=== PATIENT | female | born 1955 | race Caucasian/White ===

== ENCOUNTER → 2024-03-16 09:13 | Outpatient (CLI) | payer MEDICARE, OTHER, SELFPAY ==
[2024-03-16 10:24] LABS: Add Manual Diff / Slide Review NO; Basophils Absolute Auto 100 /uL (0-100); Basophils Percent Auto 1.3 % (0-2); Eosinophils Absolute Auto 400 /uL (0-450); Eosinophils Percent Auto 4.3 % (2-4); Hematocrit 33.1 % (36-46); Hemoglobin 10.8 g/dL (12.0-16.0); Lymphocytes Absolute Auto 1300 /uL (1100-4500); Lymphocytes Percent Auto 13.6 % (25-40); Mean Corpuscular HGB Conc 32.7 % (30-36); Mean Corpuscular Hemoglobin 28.3 PG (26-34); Mean Corpuscular Volume 86.5 fL (80-100); Monocytes Absolute Auto 1000 /uL (0-900); Monocytes Percent Auto 10.6 % (3-14); Neutrophils Absolute Auto 6800 /uL (1500-7000); Neutrophils Percent Auto 70.2 % (50-75); Platelet Count 293 X10^3/uL (150-400); Red Blood Cell Count 3.82 X10^6/uL (4.0-5.2); Red Cell Distribution Width 17.4 % (11.6-14.8); White Blood Cell Count 9.7 X10^3/uL (4.5-11.0)
[2024-03-16 10:53] LABS: Alanine Aminotransferase 22 IU/L (<35); Albumin 3.7 g/dL (3.5-5.0); Albumin Globulin Ratio 1.4 (1.0-2.8); Alkaline Phosphatase 96 U/L (38-126); Aspartate Aminotransferase 20 IU/L (14-36); BUN Creatinine Ratio 21.5 (6-22); Bilirubin Total 0.3 mg/dL (0.2-1.3); Blood Urea Nitrogen 26 mg/dL (7-17); Calcium 9.1 mg/dL (8.4-10.2); Carbon Dioxide 28 mmol/L (22-32); Chloride 105 mmol/L (98-107); Cholesterol 183 mg/dL (140-199); Estimated Glomerular Filt Rate 48 mL/min (>60); Globulin 2.6 g/dL (1.7-4.1); Glucose 105 mg/dL (80-110); HDL Cholesterol 43 mg/dL (40-60); HEMOLYSIS < 15 (0-50); LDL Cholesterol Calculated 104 mg/dL (<100); Potassium 4.7 mmol/L (3.4-5.1); Sodium 138 mmol/L (137-145); Total Protein 6.3 g/dL (6.3-8.2); Triglycerides 181 mg/dL (35-150)
[2024-03-16 12:10] LABS: Creatinine Urine Random 97.1 mg/dL
[2024-03-16 12:12] LABS: Microalbumi Creatinin Ratio Ur 10.2 ug/mg CR (<30)
[2024-03-16 12:56] LABS: Hep C Virus Ab w/Reflex Quant NEGATIVE s/c (NEGATIVE)
== END ==
LOC: LAB 09:15
PROVIDERS: PCP Family Medicine; Referring Provider Family Medicine; Visit Provider Family Medicine
DX: I73.9 Peripheral vascular disease, unspecified (principal); I65.29 Occlusion and stenosis of unspecified carotid artery; I1A.0 Resistant hypertension; G91.9 Hydrocephalus, unspecified; R26.81 Unsteadiness on feet
CPT/HCPCS: 36415; 80053; 80061; 82043; 82570; 83036; 85025; 86803

== ENCOUNTER → 2024-03-25 11:06 | Outpatient (CLI) | payer MEDICARE, OTHER, SELFPAY ==
--- NOTE | 2024-03-25 11:08 | DI.US.S_ITS ---
PROCEDURE: US CAROTID DOPPLER BI INDICATIONS: stenosis TECHNIQUE: Color and pulse Doppler interrogation was performed of both carotid systems, with image documentation and velocity measurements. COMPARISON: None. FINDINGS: Stenosis calculations are based on SRU (Society of Radiologists in Ultrasound) criteria. Right side: Status post right common endarterectomy. Brachial blood pressure: 210 mm Hg. Common carotid artery peak systolic velocity: 67 cm/sec. Internal carotid artery peak systolic velocity: 95 cm/sec. Internal carotid artery end diastolic velocity: 34 cm/sec. External carotid artery peak systolic velocity: 463 cm/sec. ICA/CCA peak systolic ratio: 1.4 . Ding scale imaging description: Moderate atherosclerotic plaque Percent internal carotid artery stenosis: Less than 50 percent stenosis. Vertebral artery: Flow direction is antegrade. Left side: Brachial blood pressure: 186 mm Hg. Common carotid artery peak systolic velocity: 74 cm/sec. Internal carotid artery peak systolic velocity: 309 cm/sec. Internal carotid artery end diastolic velocity: 61 cm/sec. External carotid artery peak systolic velocity: 252 cm/sec. ICA/CCA peak systolic ratio: 4.2 . Ding scale imaging description: Severe atherosclerotic plaque Percent internal carotid artery stenosis: 70 percent to near occlusion . Vertebral artery: Flow direction is antegrade. IMPRESSION: 1. Status post right common endarterectomy. Less than 50 percent stenosis in the internal carotid artery. 2. Left internal carotid artery demonstrates 70 percent to near occlusion. 3. Elevated external carotid artery velocities bilaterally, right greater than left. 4. Greater than 10 mm Hg difference in the bilateral upper extremity brachial pressures which is nonspecific and may be seen in the setting of a subclavian artery stenosis. Vertebral artery flow is antegrade bilaterally. 5. Elevated brachial pressures bilaterally measuring 210 mm Hg on the right. Dictated by: Elier Juarez M.D. on 03/26/2024 at 9:29 Approved by: Elier Juarez M.D. on 03/26/2024 at 9:34
== END ==
PROVIDERS: PCP Family Medicine; Referring Provider Family Medicine; Visit Provider Family Medicine
DX: I65.23 Occlusion and stenosis of bilateral carotid arteries (principal)
CPT/HCPCS: 93880

== ENCOUNTER → 2024-04-27 09:39 | Outpatient (CLI) | payer MEDICARE, OTHER, SELFPAY ==
[2024-04-27 11:47] LABS: BUN Creatinine Ratio 25.2 (6-22); Blood Urea Nitrogen 37 mg/dL (7-17); Calcium 9.3 mg/dL (8.4-10.2); Carbon Dioxide 29 mmol/L (22-32); Chloride 106 mmol/L (98-107); Estimated Glomerular Filt Rate 38 mL/min (>60); Glucose 105 mg/dL (80-110); HEMOLYSIS < 15 (0-50); Potassium 4.3 mmol/L (3.4-5.1); Sodium 140 mmol/L (137-145)
== END ==
PROVIDERS: PCP Family Medicine; Referring Provider Family Medicine; Visit Provider Family Medicine
DX: E11.22 Type 2 diabetes mellitus with diabetic chronic kidney disease (principal); N18.30 Chronic kidney disease, stage 3 unspecified
CPT/HCPCS: 36415; 80048

== ENCOUNTER → 2024-07-19 15:51 | Outpatient (CLI) | payer MEDICARE, OTHER, SELFPAY ==
[2024-07-19 17:13] LABS: Hematocrit 27.6 % (36-46); Hemoglobin 8.8 g/dL (12.0-16.0)
[2024-07-19 17:34] LABS: Creatinine Urine Random 111.88 mg/dL; Protein (Total) Urine Random 24 mg/dL (0-12); Protein Creatinine Ratio Urine 0.21 GRAM/24H
[2024-07-19 17:47] LABS: BUN Creatinine Ratio 23.5 (6-22); Blood Urea Nitrogen 28 mg/dL (7-17); Calcium 9.1 mg/dL (8.4-10.2); Carbon Dioxide 26 mmol/L (22-32); Chloride 105 mmol/L (98-107); Estimated Glomerular Filt Rate 49 mL/min (>60); Glucose 99 mg/dL (80-110); HEMOLYSIS < 15 (0-50); Potassium 3.9 mmol/L (3.4-5.1); Sodium 139 mmol/L (137-145)
[2024-07-19 18:27] LABS: Hemoglobin A1C% w Est Avg Glu 5.8 % (4.0-6.0)
== END ==
LOC: LAB 15:55
PROVIDERS: PCP Family Medicine; Referring Provider Student in an Organized Health Care Education/Training Program; Visit Provider Student in an Organized Health Care Education/Training Program
DX: E11.29 Type 2 diabetes mellitus with other diabetic kidney complication (principal); N05.9 Unspecified nephritic syndrome with unspecified morphologic changes; D70.9 Neutropenia, unspecified; D63.1 Anemia in chronic kidney disease; R80.9 Proteinuria, unspecified
CPT/HCPCS: 36415; 80048; 82570; 83036; 84156; 85014; 85018

== ENCOUNTER → 2024-08-18 15:39 | Outpatient (CLI) | payer MEDICARE, OTHER, SELFPAY ==
[2024-08-18 17:25] LABS: Add Manual Diff / Slide Review NO; Basophils Absolute Auto 200 /uL (0-100); Basophils Percent Auto 1.7 % (0-2); Eosinophils Absolute Auto 400 /uL (0-450); Eosinophils Percent Auto 4.4 % (2-4); Hematocrit 23.9 % (36-46); Hemoglobin 7.2 g/dL (12.0-16.0); Lymphocytes Absolute Auto 1600 /uL (1100-4500); Lymphocytes Percent Auto 17.9 % (25-40); Mean Corpuscular Hemoglobin 25.5 PG (26-34); Monocytes Absolute Auto 900 /uL (0-900); Monocytes Percent Auto 9.4 % (3-14); Neutrophils Absolute Auto 6100 /uL (1500-7000); Neutrophils Percent Auto 66.6 % (50-75); Platelet Count 269 X10^3/uL (150-400); Red Blood Cell Count 2.81 X10^6/uL (4.0-5.2); Red Cell Distribution Width 17.9 % (11.6-14.8); White Blood Cell Count 9.2 X10^3/uL (4.5-11.0)
[2024-08-18 18:08] LABS: BUN Creatinine Ratio 25.9 (6-22); Blood Urea Nitrogen 35 mg/dL (7-17); Calcium 8.6 mg/dL (8.4-10.2); Carbon Dioxide 27 mmol/L (22-32); Chloride 104 mmol/L (98-107); Estimated Glomerular Filt Rate 42 mL/min (>60); Glucose 173 mg/dL (80-110); HEMOLYSIS < 15 (0-50); Potassium 4.6 mmol/L (3.4-5.1); Sodium 137 mmol/L (137-145)
== END ==
PROVIDERS: PCP Family Medicine; Referring Provider Family Medicine; Visit Provider Family Medicine
DX: E11.22 Type 2 diabetes mellitus with diabetic chronic kidney disease (principal); D63.8 Anemia in other chronic diseases classified elsewhere; N18.30 Chronic kidney disease, stage 3 unspecified; E11.29 Type 2 diabetes mellitus with other diabetic kidney complication
CPT/HCPCS: 36415; 80048; 85025

== ENCOUNTER 2024-08-19 16:24 | Emergency (ER) | payer MEDICARE, OTHER, SELFPAY ==
[2024-08-19] VITALS (16 sets, daily range): BP systolic 169–226; BP diastolic 75–87; PULSE 82–113; RESP 11–25; TEMP 36.8; O2SAT 95–98; BMI 34.9
--- NOTE | 2024-08-19 16:41 | EKG_ITS ---
[id number] [place] [address] Test Date: 2024-08-19 Pat Name: Edith Jarvis Department: [facility] Room: Gender: Female [employer] Home [employer]: CAILIN TAMMI : 1955 Requested By: Order Number: [id number] Reading MD: Richi Rai Measurements Intervals [place] Rate: 85 P: 53 NM: 148 QRS: 15 QRSD: 90 T: 100 QT: 388 QTc: 461 Interpretive Statements Normal sinus rhythm Nonspecific ST and T wave abnormality Electronically Signed On 08-20-2024 8:44:45 PDT by Richi Rai
--- NOTE | 2024-08-19 16:41 | DI.RAD.S_ITS ---
PROCEDURE: XR CHEST 1V INDICATIONS: abnormal labs TECHNIQUE: One view of the chest was acquired. COMPARISON: None. FINDINGS: Surgical changes and devices: None. Lungs and pleura: Lungs are clear. No pleural effusions or pneumothorax. Mediastinum: Mediastinal contours appear normal. Heart size is normal. Bones and chest wall: No suspicious bony lesions. Overlying soft tissues appear unremarkable. IMPRESSION: No acute cardiopulmonary abnormality is seen. Dictated by: Jeffery Macias M.D. on 08/19/2024 at 17:28 Approved by: Jeffery Macias M.D. on 08/19/2024 at 17:28
[2024-08-19 17:29] LABS: Add Manual Diff / Slide Review NO; Basophils Absolute Auto 200 /uL (0-100); Basophils Percent Auto 1.5 % (0-2); Eosinophils Absolute Auto 400 /uL (0-450); Eosinophils Percent Auto 3.7 % (2-4); Hematocrit 25.4 % (36-46); Hemoglobin 7.9 g/dL (12.0-16.0); Lymphocytes Absolute Auto 1600 /uL (1100-4500); Lymphocytes Percent Auto 15.6 % (25-40); Mean Corpuscular HGB Conc 30.9 % (30-36); Mean Corpuscular Hemoglobin 26.1 PG (26-34); Mean Corpuscular Volume 84.5 fL (80-100); Monocytes Absolute Auto 1100 /uL (0-900); Monocytes Percent Auto 10.8 % (3-14); Neutrophils Absolute Auto 7200 /uL (1500-7000); Neutrophils Percent Auto 68.4 % (50-75); Platelet Count 296 X10^3/uL (150-400); Red Blood Cell Count 3.01 X10^6/uL (4.0-5.2); Red Cell Distribution Width 18.3 % (11.6-14.8); White Blood Cell Count 10.4 X10^3/uL (4.5-11.0)
[2024-08-19 17:35] LABS: Prothrombin Time 11.6 SECONDS (9.4-12.5)
[2024-08-19 17:43] LABS: Alanine Aminotransferase 16 IU/L (<35); Albumin Globulin Ratio 1.3 (1.0-2.8); Alkaline Phosphatase 123 U/L (38-126); Aspartate Aminotransferase 22 IU/L (14-36); BUN Creatinine Ratio 21.7 (6-22); Bilirubin Total 0.4 mg/dL (0.2-1.3); Blood Urea Nitrogen 30 mg/dL (7-17); Calcium 9.1 mg/dL (8.4-10.2); Carbon Dioxide 29 mmol/L (22-32); Chloride 102 mmol/L (98-107); Estimated Glomerular Filt Rate 41 mL/min (>60); Glucose 166 mg/dL (80-110); HEMOLYSIS < 15 (0-50); Potassium 4.4 mmol/L (3.4-5.1); Sodium 139 mmol/L (137-145)
--- NOTE | 2024-08-19 21:56 | ED_ITS ---
HPI - Recheck/Abnormal Lab/Rx General Chief Complaint: Recheck/Abnormal Lab/Rx Stated Complaint: sent by MD for abnormal labs Time Seen by Provider: 08/19/24 20:30 Source: patient Mode of arrival: Wheelchair History of Present Illness HPI narrative: 68-year-old woman with a history of diabetes, carotid artery stenosis, peripheral vascular disease, hypertension, hydrocephalus was seen by her primary care physician yesterday with complaints of dizziness. Lab work was done and showed a hemoglobin of 7.2 which was a decrease from 8.8 a month previously. Patient was contacted and instructed come to the emergency department for further evaluation. Repeat H&H in the emergency department today shows a hemoglobin of 7.9. Patient has had a number of medication changes including Ozempic starting 3 weeks ago, recently added amlodipine and Jardiance, she took a dose of Lasix last night continues with clonidine and lisinopril. She occasionally uses albuterol. I suspect that the Lasix last night helped with hemo concentration which is why her hemoglobin went up. She does note increased lower extremity edema, as well as orthopnea and exertional dyspnea. Related Data Previous Rx's Medication Instructions Recorded triamcinolone acetonide 0.5 % 1 applic topical TID #15 grams 03/09/24 topical ointment albuterol sulfate 90 mcg/actuation 1 - 2 inh inhalation Q4-6H PRN 03/16/24 aerosol inhaler shortness of breath or wheezing #25.5 grams rosuvastatin 40 mg tablet (Crestor) 40 mg PO DAILY #90 tabs 03/16/[address] permit #1 ea 03/17/24 semaglutide 0.25 mg or 0.5 mg (2 0.25 mg (0.368 mL) SUBCUT QWEEK #9 05/26/24 mg/3 mL) subcutaneous pen injector mL (Ozempic) clonidine HCl 0.1 mg tablet 0.1 mg PO BEDTIME #90 tabs 06/04/24 amlodipine 2.5 mg tablet (Norvasc) 2.5 mg PO DAILY blood pressure #90 07/21/24 tabs lisinopril 40 mg tablet 40 mg PO DAILY blood pressure #90 07/21/24 tabs Allergies Allergy/AdvReac Type Severity Reaction Status Date / Time codeine AdvReac Intermediate sick Verified 08/18/24 14:53 Review of Systems Review of Systems Narrative: Pertinent positive and negative findings as per HPI Patient History Medical History Major depressive disorder, single episode, mild Macular degeneration Asthma (~2014) Headache Vertigo Hearing loss Cataracts, bilateral Colon polyps (~2017) Kidney atrophy Anemia, chronic disease 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, without long-term current use of insulin Former smoker Hyperlipidemia Unsteady gait when walking Peripheral vascular disease (~2017) Hydrocephalus Carotid artery stenosis Resistant hypertension Surgical History Anesthesia History of brain shunt (~1999) History of tubal ligation (~1979) Family History Father Cancer Hyperlipidemia Hypertension Stroke Mother History of heart disease Hyperlipidemia Hypertension Brother History of hip replacement Hyperlipidemia Brother History of heart attack Social History Smoking Status: Former smoker Smoking Status: Former smoker Substance Use Type: does not use Exam Initial Vital Signs Initial Vital Signs: Vital Signs Temperature 98.3 F 08/19/24 16:30 Pulse Rate 102 H 08/19/24 16:30 Respiratory Rate 20 08/19/24 16:30 Blood Pressure 183/76 H 08/19/24 16:30 Pulse Oximetry 96 08/19/24 16:30 Oxygen Delivery Method Room Air 08/19/24 16:30 General: Fatigued appearing but no acute distress able to speak in full sentences HEENT: Moist mucous membranes, normal sclera with reactive pupils, Neck: No JVD, Respiratory: Lungs with bibasilar crackles and expiratory wheezes full and symmetrical movement Cardiac: Regular rate and rhythm no murmurs no bruits Abdomen: Soft, nontender, good bowel tones, no flank pain Skin: Warm and dry, no rashes Neurologic: Grossly neurologically intact with 2+ edema Psych: Cooperative, appropriate insight and affect Course Orders Ordered: ED Orders 08/19/24 16:41 Chest [XR chest 1V] Stat EKG-12 Lead Stat 08/19/24 16:55 Complete Blood Count AUTO DIFF Stat Comprehensive Metabolic Panel Stat Prothrombin Time INR Stat Type and Screen Stat Vital Signs Vital signs: Vital Signs - 8 hr 08/19/24 16:30 08/19/24 19:11 08/19/24 19:11 Temperature 98.3 F Pulse Rate 102 H 90 Respiratory Rate 20 15 Blood Pressure 183/76 H 169/76 H Pulse Oximetry 96 97 Oxygen Delivery Method Room Air 08/19/24 19:30 08/19/24 19:43 08/19/24 19:43 Temperature Pulse Rate 97 H Respiratory Rate 24 Blood Pressure 185/81 H 205/81 H Pulse Oximetry 97 Oxygen Delivery Method 08/19/24 20:00 08/19/24 20:01 08/19/24 20:01 Temperature Pulse Rate 83 82 Respiratory Rate Blood Pressure 219/84 H Pulse Oximetry 98 98 Oxygen Delivery Method 08/19/24 20:30 Temperature Pulse Rate 88 Respiratory Rate 11 L Blood Pressure Pulse Oximetry 98 Oxygen Delivery Method MDM - Recheck/Abnormal Lab/Rx Lab Data 08/19/24 16:55 08/19/24 16:55 Labs: Lab Results 08/19/24 Range/Units 16:55 WBC 10.4 (4.5-11.0) X10^3/uL RBC 3.01 L (4.0-5.2) X10^6/uL Hgb 7.9 L (12.0-16.0) g/dL Hct 25.4 L (36-46) % MCV 84.5 (80-100) fL MCH 26.1 (26-34) PG MCHC 30.9 (30-36) % RDW 18.3 H (11.6-14.8) % Plt Count 296 (150-400) X10^3/uL Neut % (Auto) 68.4 (50-75) % Lymph % (Auto) 15.6 L (25-40) % [place] % (Auto) 10.8 (3-14) % Eos % (Auto) 3.7 (2-4) % Baso % (Auto) 1.5 (0-2) % Neut # (Auto) 7200 H (3923-6394) /uL Lymph # (Auto) 1600 (5269-3864) /uL [place] # (Auto) 1100 H (0-900) /uL Eos # (Auto) 400 (0-450) /uL Baso # (Auto) 200 H (0-100) /uL PT 11.6 (9.4-12.5) SECONDS INR 1.0 (0.9-1.3) Sodium 139 (137-145) mmol/L Potassium 4.4 (3.4-5.1) mmol/L Chloride 102 (98-107) mmol/L Carbon Dioxide 29 (22-32) mmol/L BUN 30 H (7-17) mg/dL Creatinine 1.38 H (0.52-1.04) mg/dL Estimated GFR 41 L (>60) mL/min BUN/Creatinine Ratio 21.7 (6-22) Glucose 166 H (80-110) mg/dL Calcium 9.1 (8.4-10.2) mg/dL Total Bilirubin 0.4 (0.2-1.3) mg/dL AST 22 (14-36) IU/L ALT 16 (<35) IU/L Alkaline Phosphatase 123 (38-126) U/L Total Protein 7.0 (6.3-8.2) g/dL Albumin 4.0 (3.5-5.0) g/dL Globulin 3.0 (1.7-4.1) g/dL Albumin/Globulin Ratio 1.3 (1.0-2.8) Blood Type O Negative Antibody Screen Negative MDM Narrative Medical decision making narrative: CC: General malaise, exertional dyspnea, orthopnea Complicating co-morbidities: Diabetes, hypertension, chronic kidney disease Data collected from: patient, daughter Social determinants of health that may influence the patients condition: Lives in [facility], reluctant to take many medications Medical records reviewed: Primary care note from yesterday is reviewed Differential considered: Acute bleeding, significant anemia, worsening kidney failure, congestive heart failure, acute coronary syndrome, viral syndrome Exam documented above, pertinent findings include: No acute distress but appears to be fatigued. She has mild bibasilar crackles and expiratory wheeze in lung garcia. She does not have JVD but she does have 2+ bilateral lower extremity edema. Lab Test results independently reviewed as above. Pertinent findings: CBC shows no evidence of infection, white count is appropriate. Hemoglobin has increased from 7.2-7.9 since yesterday(this is after a dose of Lasix yesterday afternoon) Chemistries are notable for her chronic kidney disease creatinine is at 1.3. Electrolytes are appropriate otherwise Independently reviewed EKG: EKG shows sinus rhythm at a rate of 85 no acute ischemic changes Imaging studies independently reviewed: Chest x-ray shows no acute cardiopulmonary abnormalities. No evidence of severe congestive heart failure Consultations: Treatments: She is given her usual 0.2 mg of nighttime clonidine as well as 80 mg of IV Lasix Re-evaluations: Discussion: 68-year-old woman with multiple complaints. Multiple recent medications that may be causing her problems. With shared decision-making we opted to hold some of her medications, increase others and re-evaluate more slowly as medications are added to see which are causing side effects recommendations are: 1. Continue with the Ozempic for at least another month to see if she continues to adjust to side effects from this 2. Continue with lisinopril and clonidine as she has been taking them 3. Continue current dose of Lasix. When you do follow up with Dr. Thomas, please take this prescription bottle in with you. I am unable to confirm the dose of Lasix you currently have 4. Hold on the Jardiance 5. Hold on the amlodipine 6. Do check blood pressures in the middle of the day and write these numbers down to review with Dr. Thomas At this time there was no indication for transfusion. She was given a DuoNeb to help with the expiratory wheeze. We will ask her to follow up with her primary care physician in 1-2 weeks. We will likely need to repeat blood work. Given her clinical signs of congestive heart failure echocardiogram and outpatient nuclear medicine cardiac evaluation may be appropriate to be included in continued workup. Discharge Plan Departure Patient Disposition: Home Clinical Impression: Congestive heart failure Qualifiers: Heart failure type: unspecified Heart failure chronicity: unspecified Qualified Code(s): I50.9 - Heart failure, unspecified Hypertension Qualifiers: Hypertension type: primary hypertension Qualified Code(s): I10 - Essential (primary) hypertension Fatigue Qualifiers: Fatigue type: unspecified Qualified Code(s): R53.83 - Other fatigue Activity Restrictions/Additional Instructions: Thank you for coming in today I did not find any evidence of acute bleeding, you do not need a blood transfusion today. With shared decision-making we opted to hold some of your medications, increase others and re-evaluate more slowly as medications are added to see which are causing side effects. recommendations are: 1. Continue with the Ozempic for at least another month to see if she continues to adjust to side effects from this 2. Continue with lisinopril and clonidine as she has been taking them 3. Continue current dose of Lasix. When you do follow up with Dr. Thomas, please take this prescription bottle in with you. I am unable to confirm the dose of Lasix you currently have 4. Hold on the Jardiance 5. Hold on the amlodipine 6. Do check blood pressures in the middle of the day and write these numbers down to review with Dr. Thomas Please make sure you schedule a follow up appointment with Dr. Thomas in the next 1-2 weeks. If you find that you are getting worse or develop any new symptoms, please feel free to return to the emergency department for further evaluation. Prescriptions: No Action triamcinolone acetonide 0.5 % ointment 1 applic topical TID Qty: 15 0RF (DME) Disabled parking permit See Rx Instructions .ROUTE .MEDSUPPLY Qty: 1 0RF Rx Instructions: I find this patient to be medically disabled and qualified for disabled parking as indicated, and signed, on the accompanying disabled parking application for individuals. Ozempic 0.25 mg or 0.5 mg (2 mg/3 mL) pen injector 0.25 mg SUBCUT QWEEK Qty: 9 3RF Rx Instructions: Pt eligible per [facility] pharmacy. Please fax prior auth paperwork to [phone]. We have tried to submit by phone but it never connects to a treasury representative. clonidine HCl 0.1 mg tablet 0.1 mg PO BEDTIME Qty: 90 3RF lisinopril 40 mg tablet 40 mg PO DAILY Qty: 90 3RF amlodipine [Norvasc] 2.5 mg tablet 2.5 mg PO DAILY Qty: 90 3RF Hold Instructions: Home Medication placed on hold at Doctor's office rosuvastatin [Crestor] 40 mg tablet 40 mg PO DAILY Qty: 90 3RF albuterol sulfate 90 mcg/actuation HFA aerosol inhaler 1 - 2 inh inhalation Q4-6H PRN (Reason: shortness of breath or wheezing) Qty: 25.5 3RF Referrals: Yeni Casper DO [Primary Care Provider] - Stand Alone Forms: Patient Portal/API
[2024-08-19] MEDS: ALBUTEROL/IPRATROPIUM 3 ML AMPUL INH (22:34)
[2024-08-19] MEDS: cloNIDine 0.1 MG TABLET 0.2 MG PO (22:40)
[2024-08-19] MEDS: FUROSEMIDE 40 MG/4 ML VIAL 80 MG IV (22:41)
== END 2024-08-19 23:30 | disposition home or self-care (01) ==
PROVIDERS: Emergency Medicine; Emergency Provider Emergency Medicine; PCP Family Medicine
DX: I50.9 Heart failure, unspecified (principal); I10 Essential (primary) hypertension; R53.83 Other fatigue; R79.89 Other specified abnormal findings of blood chemistry; Z79.899 Other long term (current) drug therapy; Z79.01 Long term (current) use of anticoagulants
CPT/HCPCS: 36415; 71045; 80053; 85025; 85610; 86850; 86900; 86901; 93005; 94640; 96374; 99284; J1940

== ENCOUNTER 2024-08-24 10:36 | Emergency (ER) | payer MEDICARE, OTHER, SELFPAY ==
[2024-08-24] VITALS (11 sets, daily range): BP systolic 126–182; BP diastolic 57–77; PULSE 86–101; RESP 14–36; TEMP 36.3; O2SAT 95–97; BMI 34.9
--- NOTE | 2024-08-24 10:37 | DI.RAD.S_ITS ---
PROCEDURE: XR CHEST 1V INDICATIONS: chest pain TECHNIQUE: One view of the chest was acquired. COMPARISON: [facility], CR, XR CHEST 1V, 08/19/2024, 16:41. FINDINGS: Surgical changes and devices: None. Lungs and pleura: Lungs are clear. No pleural effusions or pneumothorax. Mediastinum: Mediastinal contours appear normal. Heart size is normal. Bones and chest wall: No suspicious bony lesions. Overlying soft tissues appear unremarkable. IMPRESSION: No acute cardiopulmonary pathology. Dictated by: Virgilio Rubin M.D. on 08/24/2024 at 10:57 Approved by: Virgilio Rubin M.D. on 08/24/2024 at 10:58
--- NOTE | 2024-08-24 10:40 | ED_ITS ---
HPI - General Adult General Chief complaint: Chest Pain Stated complaint: chest pain Time Seen by Provider: 08/24/24 10:40 History of Present Illness HPI narrative: Patient with a history of diabetes, peripheral vascular disease, coronary artery stenosis hypertension hydrocephalus had multiple medical changes recently in seen in the emergency department on August 19 with concerns of a hemoglobin of 2 as a cause for her symptoms. Repeat H&H was 7.9 and she was felt to be in a moderate amount of heart failure. She was diuresed and instructed to follow up with her primary care physician today. Additional changes without visit included holding Jardiance, amlodipe. She has been on amlodipine for approximately 6 months and was going to do her shot this week. She saw her primary care doctor this morning and was complaining of chest pain and he sent her back to the emergency department for further evaluation. Patient has been given 20 mg of torsemide by her condenser operator but had not been taking it. After ER visit on August 19 she actually has been and notes that she has been voiding frequently and her lower extremity edema has gone way down. Blood pressure is much better controlled this morning as she did take her blood pressure medications however she is complaining of dizzy and simply not feeling well. Related Data Home Medications Medication Instructions Recorded Confirmed torsemide 20 mg tablet 20 mg PO DAILY 08/24/24 08/24/24 Previous Rx's Medication Instructions Recorded albuterol sulfate 90 mcg/actuation 1 - 2 inh inhalation Q4-6H PRN 03/16/24 aerosol inhaler shortness of breath or wheezing #25.5 grams rosuvastatin 40 mg tablet (Crestor) 40 mg PO DAILY #90 tabs 03/16/24 [address]abled [address] permit #1 ea 03/17/24 semaglutide 0.25 mg or 0.5 mg (2 0.25 mg (0.368 mL) SUBCUT QWEEK #9 05/26/24 mg/3 mL) subcutaneous pen injector mL (Ozempic) clonidine HCl 0.1 mg tablet 0.1 mg PO BEDTIME #90 tabs 06/04/24 amlodipine 2.5 mg tablet (Norvasc) 2.5 mg PO DAILY blood pressure #90 07/21/24 tabs lisinopril 40 mg tablet 40 mg PO DAILY blood pressure #90 07/21/24 tabs Allergies Allergy/AdvReac Type Severity Reaction Status Date / Time codeine AdvReac Intermediate sick Verified 08/24/24 10:01 Review of Systems Review of Systems Narrative: Pertinent positive and negative findings as per HPI Patient History Medical History Major depressive disorder, single episode, mild Macular degeneration Asthma (~2014) Headache Vertigo Hearing loss Cataracts, bilateral Colon polyps (~2017) Kidney atrophy Anemia, chronic disease 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, without long-term current use of insulin Former smoker Hyperlipidemia Unsteady gait when walking Peripheral vascular disease (~2017) Hydrocephalus Carotid artery stenosis Resistant hypertension Surgical History Anesthesia History of brain shunt (~1999) History of tubal ligation (~1979) Family History Father Cancer Hyperlipidemia Hypertension Stroke Mother History of heart disease Hyperlipidemia Hypertension Brother History of hip replacement Hyperlipidemia Brother History of heart attack Social History Smoking Status: Former smoker Smoking Status: Former smoker Substance Use Type: does not use Exam Initial Vital Signs Initial Vital Signs: Vital Signs Temperature 97.4 F L 08/24/24 10:43 Pulse Rate 101 H 08/24/24 10:43 Respiratory Rate 18 08/24/24 10:43 Blood Pressure 154/67 H 08/24/24 10:43 Pulse Oximetry 97 08/24/24 10:43 Oxygen Delivery Method Room Air 08/24/24 10:43 General: Fatigued appearing but in no acute distress. Able to give a complete and coherent history. HEENT: Moist mucous membranes, normal sclera with reactive pupils, Neck: No JVD, supple Respiratory: Lungs are clear to auscultation, no wheezing no rales no rhonchi. Full and symmetrical air movement Cardiac: Regular rate and rhythm no murmurs no bruits Abdomen: Soft, nontender, good bowel tones, no flank pain Skin: Warm and dry, no rashes Neurologic: Grossly neurologically intact with no obvious asymmetries or abnormalities Extremities: No trauma, lower extremities are showing 1+ edema which is a significant improvement from comparison to the . Psych: Cooperative, appropriate insight and affect Course Orders Ordered: ED Orders 08/24/24 10:15 Complete Blood Count AUTO DIFF Stat Comprehensive Metabolic Panel Stat Lipase Stat Magnesium Stat NT-proBNP (BNP-Adult 18+) Stat PTT Partial Thromboplastin Breezy Stat Prothrombin Time INR Stat Troponin & CK Cardiac Panel Stat 08/24/24 10:37 XR chest 1V Stat EKG-12 Lead Stat 08/24/24 12:25 Trop I [Troponin I] Stat Discontinued Medications Aspirin (Aspirin 81 Mg Chew Tab) 324 mg PO NOW ONE Stop: 08/24/24 10:38 Last Admin: 08/24/24 11:47 Dose: Not Given Documented By: SB Sodium Chloride (Normal Saline 0.9%) 1,000 mls @ 1,000 mls/hr IV BOLUS ONE Stop: 08/24/24 13:25 Last Admin: 08/24/24 12:36 Dose: 1,000 mls/hr Documented By: AMV Vital Signs Vital signs: Vital Signs - 8 hr 08/24/24 10:43 08/24/24 10:44 08/24/24 11:01 Temperature 97.4 F L Pulse Rate 101 H 101 H 96 H Respiratory Rate 18 36 H 22 Blood Pressure 154/67 H 182/77 H Pulse Oximetry 97 97 97 Oxygen Delivery Method Room Air 08/24/24 11:31 08/24/24 12:01 08/24/24 12:30 Temperature Pulse Rate 93 H 95 H 88 Respiratory Rate 19 24 18 Blood Pressure 146/63 H 126/57 L Pulse Oximetry 95 97 95 Oxygen Delivery Method Room Air 08/24/24 12:31 08/24/24 12:31 08/24/24 13:00 Temperature Pulse Rate 90 Respiratory Rate 24 Blood Pressure 157/70 H 171/74 H Pulse Oximetry 95 Oxygen Delivery Method 08/24/24 13:00 Temperature Pulse Rate 87 Respiratory Rate 14 Blood Pressure Pulse Oximetry 96 Oxygen Delivery Method Medical Decision Making Lab Data 08/24/24 10:15 08/24/24 10:15 Labs: Lab Results 08/24/24 08/24/24 Range/Units 10:15 12:25 WBC 10.3 (4.5-11.0) X10^3/uL RBC 3.20 L (4.0-5.2) X10^6/uL Hgb 8.2 L (12.0-16.0) g/dL Hct 26.8 L (36-46) % MCV 83.8 (80-100) fL MCH 25.7 L (26-34) PG MCHC 30.7 (30-36) % RDW 19.5 H (11.6-14.8) % Plt Count 305 (150-400) X10^3/uL Neut % (Auto) Not Reportable Lymph % (Auto) Not Reportable [place] % (Auto) Not Reportable Eos % (Auto) Not Reportable Baso % (Auto) Not Reportable Lymph # (Auto) Not Reportable [place] # (Auto) Not Reportable Baso # (Auto) Not Reportable Total Counted 100 Seg Neutrophils % 79.0 H (38-70) % Band Neutrophils % 2.0 L (3-7) % Lymphocytes % (Manual) 14.0 L (25-45) % Eosinophils % (Manual) 2.0 (2-4) % Basophils % (Manual) 3.0 H (0-1) % Neutrophils # (Manual) 8343 H (8086-5640) /uL RBC Morphology See below Hypochromasia 1+ H Anisocytosis 1+ H PT 12.2 (9.4-12.5) SECONDS INR 1.1 (0.9-1.3) APTT 34 (25.1-36.5) SECONDS Sodium 139 (137-145) mmol/L Potassium 4.3 (3.4-5.1) mmol/L Chloride 103 (98-107) mmol/L Carbon Dioxide 28 (22-32) mmol/L BUN 52 H (7-17) mg/dL Creatinine 1.57 H (0.52-1.04) mg/dL Estimated GFR 35 L (>60) mL/min BUN/Creatinine Ratio 33.1 H (6-22) Glucose 235 H (80-110) mg/dL Calcium 9.0 (8.4-10.2) mg/dL Magnesium 1.8 (1.6-2.3) mg/dL Total Bilirubin 0.4 (0.2-1.3) mg/dL AST 39 H (14-36) IU/L ALT 18 (<35) IU/L Alkaline Phosphatase 93 (38-126) U/L Total Creatine Kinase 111 (30-135) U/L Troponin I 0.030 0.029 (0.01-0.034) ng/mL NT-Pro-B Natriuret Pep 180 H (<125) pg/mL Total Protein 6.9 (6.3-8.2) g/dL Albumin 4.0 (3.5-5.0) g/dL Globulin 2.9 (1.7-4.1) g/dL Albumin/Globulin Ratio 1.4 (1.0-2.8) Lipase 220 (23-300) U/L MDM Narrative Medical decision making narrative: CC: Chest pain Complicating co-morbidities: Diabetes, hypertension, general malaise over the last number of weeks Data collected from: patient Social determinants of health that may influence the patients condition: Medical records reviewed: Reviewed recent ER note with addition of Lasix, held amlodipine and held Jardiance. Discussed with her primary care physician in real-time this morning Differential considered: Cardiac pain, esophageal spasm, nausea, reflux Exam documented above, pertinent findings include: Lab Test results independently reviewed as above. Pertinent findings: CBC is unremarkable. Hemoglobin continues to increase Chemistries show continued climb in her creatinine, in July creatinine had been 1.2 today is 1.6 ProBNP is 180, minimally elevated Initial troponin is undetectable Lipase is unremarkable Independently reviewed EKG: Sinus rhythm, PVCs noted. No acute ischemic changes Imaging studies independently reviewed: Chest x-ray shows no acute changes Treatments: 250 cc of fluid Discussion: Patient states she is feeling significantly better, chest pain has completely resolved, her dizziness has resolved. Labs are reassuring with no evidence of acute coronary disease but a slight bump in her creatinine with normal electrolytes. Was planning on a full L of fluid however after 250 cc with resolution of symptoms we will hold this point. We will ask her to decrease her torsemide to 10 mg rather than 20 mg. I think we have maximized her volume overload. We will have her continue with current medications and continue holding the Jardiance in the amlodipine. She will keep checking blood pressures. Encouraged her to schedule a another follow up with her primary care doctor and to keep the scheduled follow up with her condenser operator. Questions are answered she is safe for discharge Discharge Plan Departure Patient Disposition: Home Clinical Impression: Acute dehydration, Dizziness Chest pain Qualifiers: Chest pain type: unspecified Qualified Code(s): R07.9 - Chest pain, unspecified Activity Restrictions/Additional Instructions: Thank you for coming in today I am glad that you are feeling better. I gave you do 150 cc of fluid and that made a significant difference. I think that we have given you a bit too much of your diuretic and that is what is making you dizzy. I am going to suggest that tonight you begin cutting your torsemide from 20 mg to 10 mg. I did not find any evidence of infection or significant heart attack or heart attack like syndrome Please continue with all of the other medications that you are currently taking including holding the Jardiance in the amlodipine. Make sure that you are checking your blood pressures at least once a day to document that for your physicians You will need to follow up with your primary care doctor in 1-2 weeks. Please keep your nephrology follow up as already scheduled If you find that you are getting worse or develop any new symptoms, please feel free to return to the emergency department for further evaluation. Prescriptions: No Action (DME) Disabled parking permit See Rx Instructions .ROUTE .MEDSUPPLY Qty: 1 0RF Rx Instructions: I find this patient to be medically disabled and qualified for disabled parking as indicated, and signed, on the accompanying disabled parking application for individuals. Ozempic 0.25 mg or 0.5 mg (2 mg/3 mL) pen injector 0.25 mg SUBCUT QWEEK Qty: 9 3RF Rx Instructions: Pt eligible per [facility] pharmacy. Please fax prior auth paperwork to [phone]. We have tried to submit by phone but it never connects to a manufacturers service representative. clonidine HCl 0.1 mg tablet 0.1 mg PO BEDTIME Qty: 90 3RF lisinopril 40 mg tablet 40 mg PO DAILY Qty: 90 3RF amlodipine [Norvasc] 2.5 mg tablet 2.5 mg PO DAILY Qty: 90 3RF Hold Instructions: Home Medication placed on hold at Doctor's office rosuvastatin [Crestor] 40 mg tablet 40 mg PO DAILY Qty: 90 3RF albuterol sulfate 90 mcg/actuation HFA aerosol inhaler 1 - 2 inh inhalation Q4-6H PRN (Reason: shortness of breath or wheezing) Qty: 25.5 3RF torsemide 20 mg tablet 20 mg PO DAILY Referrals: Yeni Casper DO [Primary Care Provider] - Stand Alone Forms: Patient Portal/API
--- NOTE | 2024-08-24 10:53 | EKG_ITS ---
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
[2024-08-24 11:00] LABS: INR 1.1 (0.9-1.3); Prothrombin Time 12.2 SECONDS (9.4-12.5)
[2024-08-24 11:02] LABS: PTT Partial Thromboplastin Tim 34 SECONDS (25.1-36.5)
[2024-08-24 11:04] LABS: Add Manual Diff / Slide Review YES; Hematocrit 26.8 % (36-46); Hemoglobin 8.2 g/dL (12.0-16.0); Mean Corpuscular HGB Conc 30.7 % (30-36); Mean Corpuscular Hemoglobin 25.7 PG (26-34); Mean Corpuscular Volume 83.8 fL (80-100); Platelet Count 305 X10^3/uL (150-400); Red Cell Distribution Width 19.5 % (11.6-14.8); White Blood Cell Count 10.3 X10^3/uL (4.5-11.0)
[2024-08-24 11:05] LABS: Alanine Aminotransferase 18 IU/L (<35); Albumin Globulin Ratio 1.4 (1.0-2.8); Alkaline Phosphatase 93 U/L (38-126); Aspartate Aminotransferase 39 IU/L (14-36); BUN Creatinine Ratio 33.1 (6-22); Bilirubin Total 0.4 mg/dL (0.2-1.3); Blood Urea Nitrogen 52 mg/dL (7-17); Carbon Dioxide 28 mmol/L (22-32); Chloride 103 mmol/L (98-107); Creatine Kinase 111 U/L (30-135); Estimated Glomerular Filt Rate 35 mL/min (>60); Globulin 2.9 g/dL (1.7-4.1); Glucose 235 mg/dL (80-110); HEMOLYSIS < 15 (0-50); Lipase 220 U/L (23-300); Magnesium 1.8 mg/dL (1.6-2.3); Potassium 4.3 mmol/L (3.4-5.1); Sodium 139 mmol/L (137-145); Total Protein 6.9 g/dL (6.3-8.2)
[2024-08-24 11:17] LABS: NT-proBNP (BNP-Adult 18+) 180 pg/mL (<125)
[2024-08-24 11:29] LABS: Neutrophils Absolute Manual 8343 /uL (3000-5900); Total Cells Counted 100
[2024-08-24 11:30] LABS: Anisocytosis 1+; Hypochromasia 1+
[2024-08-24] MEDS: SODIUM CHLORIDE 0.9% 1,000 ML 1000 ML IV (12:36)
[2024-08-24 12:57] LABS: Troponin I 0.029 ng/mL (0.01-0.034)
--- NOTE | 2024-08-24 13:53 | PC.NURSE ---
Per Provider Yamileth RYDER to stop IV fluids. NS admin as per JAN.
== END 2024-08-24 14:32 | disposition home or self-care (01) ==
PROVIDERS: Emergency Provider Emergency Medicine; PCP Family Medicine
DX: R07.9 Chest pain, unspecified (principal); E86.0 Dehydration; R42 Dizziness and giddiness; I10 Essential (primary) hypertension; I25.10 Atherosclerotic heart disease of native coronary artery without angina pectoris
CPT/HCPCS: 71045; 80053; 82550; 83690; 83735; 83880; 84484; 85007; 85025; 85610; 85730; 93005; 93010; 96360; 99284

== ENCOUNTER → 2024-09-17 10:13 | Outpatient (CLI) | payer MEDICARE, OTHER, SELFPAY ==
[2024-09-17 11:23] LABS: Hematocrit 25.7 % (36-46); Hemoglobin 7.7 g/dL (12.0-16.0)
[2024-09-17 11:51] LABS: Blood Urea Nitrogen 32 mg/dL (7-17); Calcium 9.2 mg/dL (8.4-10.2); Carbon Dioxide 29 mmol/L (22-32); Chloride 103 mmol/L (98-107); Estimated Glomerular Filt Rate 41 mL/min (>60); Glucose 112 mg/dL (80-110); HEMOLYSIS < 15 (0-50); Phosphorous 3.7 mg/dL (2.8-4.1); Potassium 4.5 mmol/L (3.4-5.1); Sodium 138 mmol/L (137-145)
[2024-09-17 11:55] LABS: HEMOLYSIS < 15 (0-50); Iron 191 ug/dL (37-170)
[2024-09-17 12:08] LABS: Percent Iron Saturation 43 % (15-50); Total Iron Binding Capacity 448 ug/dL (265-497); Transferrin 334 mg/dL (206-381)
[2024-09-17 12:13] LABS: Creatinine Urine Random 62.43 mg/dL; Protein (Total) Urine Random 6 mg/dL (0-12); Protein Creatinine Ratio Urine 0.09 GRAM/24H
[2024-09-17 12:25] LABS: Ferritin 8 ng/mL (11-264)
[2024-09-18 10:12] LABS: Parathyroid Hormone Int 69 pg/mL (15-65)
== END ==
PROVIDERS: PCP Family Medicine; Referring Provider Student in an Organized Health Care Education/Training Program; Visit Provider Student in an Organized Health Care Education/Training Program
DX: N05.9 Unspecified nephritic syndrome with unspecified morphologic changes (principal); D50.0 Iron deficiency anemia secondary to blood loss (chronic); D70.9 Neutropenia, unspecified; D63.1 Anemia in chronic kidney disease; N25.81 Secondary hyperparathyroidism of renal origin; R80.9 Proteinuria, unspecified; E83.30 Disorder of phosphorus metabolism, unspecified
CPT/HCPCS: 36415; 80048; 82570; 82728; 83540; 83550; 83970; 84100; 84156; 85014; 85018

== ENCOUNTER → 2024-10-01 11:05 | Outpatient (CLI) | payer MEDICARE, OTHER, SELFPAY ==
--- NOTE | 2024-10-01 11:08 | DI.CT.S_ITS ---
PROCEDURE: CT HEAD/BRAIN WO CON INDICATIONS: (Idiopathic) normal pressure hydrocephalus TECHNIQUE: Noncontrast 4.5 mm thick angled axial sections acquired from the foramen magnum to the vertex, with coronal and sagittal reformats. For radiation dose reduction, the following was used: automated exposure control, adjustment of mA and/or kV according to patient size. COMPARISON: None. FINDINGS: Image quality: Diagnostic. CSF spaces: Basal cisterns are patent. No extra-axial fluid collections. Hyperdense extra-axial material along the right cerebral convexity. The ventricles are mildly dilated. Left parietal ventriculostomy catheter in place with tip terminating near the foramen of [place]. Brain: No intracranial bleeds or masses. There is cerebral volume loss for age, with resultant ventricular and sulcal prominence. Hypoattenuation is seen around the ventricles, favored to represent chronic microvascular ischemic changes. There is intracranial internal carotid artery atherosclerosis. Skull and face: Calvarium and visualized facial bones appear intact, without suspicious lesions. Sinuses: Visualized sinuses and mastoids are clear. IMPRESSION: Ventricles are dilated with a left parietal approach ventriculostomy catheter in place. Hypoattenuation is seen around the ventricles which is favored to represent chronic microvascular ischemic changes. However, no prior imaging is available for comparison and transependymal flow of CSF from acute hydrocephalus is not definitively excluded. Recommend clinical correlation and comparison to prior imaging if available. High-density material along the right cerebral convexity of uncertain etiology, correlate with prior postsurgical changes and prior imaging. Dictated by: Robert Young M.D. on 10/01/2024 at 12:37 Approved by: Robert Young M.D. on 10/01/2024 at 12:41
--- NOTE | 2024-10-01 11:10 | DI.RAD.S_ITS ---
PROCEDURE: XR CHEST 1V INDICATIONS: (Idiopathic) normal pressure hydrocephalus TECHNIQUE: One view of the chest was acquired. COMPARISON: [facility], CR, XR CHEST 1V, 08/24/2024, 10:40. [facility], CR, XR CHEST 1V, 08/19/2024, 16:41. FINDINGS: Surgical changes and devices: Ventriculoperitoneal catheter is seen projecting over the chest. The portion of the catheter of the mid to lower chest is obscured by superimposed osseous structures. Visualized portions of the catheter tubing are intact. Lungs and pleura: Lungs are clear. No pleural effusions or pneumothorax. Mediastinum: Mediastinal contours appear normal. Heart size is normal. Bones and chest wall: No suspicious bony lesions. Overlying soft tissues appear unremarkable. IMPRESSION: 1. No acute cardiopulmonary abnormality is seen. 2. Ventricular peritoneal shunt catheter is intact where visualized. Approved by: Giovani Tejeda M.D. on 10/01/2024 at 13:03
--- NOTE | 2024-10-01 11:10 | DI.RAD.S_ITS ---
PROCEDURE: XR SKULL<4V INDICATIONS: (Idiopathic) normal pressure hydrocephalus TECHNIQUE: Single view of the skull acquired, frontal projection. COMPARISON: [facility], CT, CT HEAD/BRAIN WO CON, 10/01/2024, 12:04. FINDINGS: Bones: No fractures. No suspicious bony lesions. Visualized sinuses appear clear. Soft tissues: No soft tissue calcifications. No suspicious soft tissue densities. Ventriculostomy catheter also seen by CT scanning same day traverses along the left neck area extending inferiorly through the supraclavicular fossa towards the midline and below the imaging margin. IMPRESSION: No evidence of ventriculostomy catheter kinking, or fracture. Dictated by: Gus Marie M.D. on 10/01/2024 at 13:57 Approved by: Gus Marie M.D. on 10/01/2024 at 13:59
== END ==
PROVIDERS: PCP Family Medicine; Referring Provider Neurological Surgery; Visit Provider Neurological Surgery
DX: G91.2 (Idiopathic) normal pressure hydrocephalus (principal); Z98.2 Presence of cerebrospinal fluid drainage device
CPT/HCPCS: 70250; 70450; 71045

== ENCOUNTER 2024-10-05 07:11 | Inpatient (IN) | payer MEDICARE, OTHER, SELFPAY ==
[2024-10-05] VITALS (26 sets, daily range): BP systolic 135–184; BP diastolic 46–81; PULSE 78–108; RESP 16–24; TEMP 36.3–36.9; O2SAT 88–100; BMI 36.5
--- NOTE | 2024-10-05 07:19 | EKG_ITS ---
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
--- NOTE | 2024-10-05 07:19 | ED.CHESTPAIN ---
HPI - Chest Pain General Chief Complaint: Chest Pain Stated Complaint: Chest Pain Time Seen by Provider: 10/05/24 07:19 Source: patient, RN notes reviewed and old records reviewed Mode of arrival: EMS Limitations: no limitations History of Present Illness HPI narrative: 69-year-old female with history of diabetes, peripheral vascular disease, coronary artery stenosis on Plavix, hypertension, hydrocephalus with prior shunt who presents with complaint of substernal chest pain without any radiation been present since last night at about 8:00 a.m. in the evening. Patient states it started while she was watching TV never resolved worsened overnight and became intense enough that she called for EMS this morning. She states no radiation is worse with exertion, states she also feels short of breath with it. Denies any fevers or chills, no cold, cough or congestion. No nausea or vomiting. No diaphoresis. States she is chronic swelling in his lower extremities but not significantly worse today. States no issues with bowel movement or urination that are new. She notes a little bit positional little bit better when she is upright. She notes that she has been anemic is scheduled for iron infusions she is unsure why, she is on Plavix daily but no aspirin, is on lisinopril 40 mg for hypertension amlodipine 2.5 mg, clonidine 0.1 mg which she describes as PRN, rosuvastatin and states that she was receiving Ozempic recently. She was takes torsemide 10 mg twice daily. States prior surgeries include [employer] shunt, stents in her lower extremities endarterectomy on the right and scheduled for enteritis oophorectomy on the left. Has not had any prior cardiac stents or heart catheterization. Describes allergy to codeine. No tobacco, alcohol or recreational drugs. Primary care physician is Dr. Casper. Has seen Cardiology once before. Patient received aspirin 325 mg nitro sublingual x2 and morphine EN route with EMS with improvement of her chest pain from an 8 to a 2. Related Data Home Medications Medication Instructions Recorded Confirmed torsemide 20 mg tablet 10 mg PO DAILY 09/03/24 09/29/24 Previous Rx's Medication Instructions Recorded albuterol sulfate 90 mcg/actuation 1 - 2 inh inhalation Q4-6H PRN 03/16/24 aerosol inhaler shortness of breath or wheezing #25.5 grams rosuvastatin 40 mg tablet (Crestor) 40 mg PO DAILY #90 tabs 03/16/24 [address]abled [address] permit #1 ea 03/17/24 clonidine HCl 0.1 mg tablet 0.1 mg PO BEDTIME #90 tabs 06/04/24 amlodipine 2.5 mg tablet (Norvasc) 2.5 mg PO DAILY blood pressure #90 07/21/24 tabs lisinopril 40 mg tablet 40 mg PO DAILY blood pressure #90 07/21/24 tabs semaglutide 0.25 mg or 0.5 mg (2 0.25 mg (0.368 mL) SUBCUT QWEEK #9 09/08/24 mg/3 mL) subcutaneous pen injector mL (Ozempic) alprazolam 0.5 mg tablet (Xanax) 0.5 mg PO DAILY PRN eye injections 09/29/24 #14 tabs Allergies Allergy/AdvReac Type Severity Reaction Status Date / Time codeine AdvReac Intermediate sick Verified 09/29/24 10:36 Review of Systems Review of Systems ROS Unobtainable: All systems reviewed & are unremarkable except as noted in HPI and below Patient History Medical History Major depressive disorder, single episode, mild Macular degeneration Asthma (~2014) Headache Vertigo Hearing loss Cataracts, bilateral Colon polyps (~2017) Kidney atrophy Anemia, chronic disease 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, without long-term current use of insulin Former smoker Hyperlipidemia Unsteady gait when walking Peripheral vascular disease (~2017) Hydrocephalus Carotid artery stenosis Resistant hypertension Surgical History Anesthesia History of brain shunt (~1999) History of tubal ligation (~1979) Family History Father Cancer Hyperlipidemia Hypertension Stroke Mother History of heart disease Hyperlipidemia Hypertension Brother History of hip replacement Hyperlipidemia Brother History of heart attack Social History Smoking Status: Former smoker Smoking Status: Former smoker Substance Use Type: does not use Exam Narrative Exam Narrative: GENERAL: Alert and oriented x three, female in mild distress. No diaphoresis. HEENT: Head normocephalic, atraumatic, EOMI, pupils reactive, face symmetric, moist mucous membranes NECK: Supple, full range of motion CARDIOVASCULAR: Regular rate and rhythm without murmurs, rubs or gallops. No JVD. Nonpitting edema bilateral lower extremities. RESPIRATORY: Breath sounds equal bilaterally, no wheezes rales or rhonchi. No tachypnea or accessory muscle use. Speaks in full sentences. ABDOMEN: Soft, nontender. Normoactive bowel sounds all 4 quadrants. No guarding or rebound, rigidity, no mass : No CVA tenderness EXTREMITIES: Normal range of motion.. Neurovascularly intact NEUROLOGICAL: Cranial nerves II through XII grossly intact. Moving all extremities SKIN: Warm, dry, no petechiae, no rashes or lesions. Initial Vital Signs Initial Vital Signs: Vital Signs Pulse Rate 104 H 10/05/24 07:13 Pulse Oximetry 88 L 10/05/24 07:13 Course Orders Ordered: ED Orders 10/05/24 06:55 Complete Blood Count AUTO DIFF Stat Comprehensive Metabolic Panel Stat D Dimer Stat Lactate (Lactic Acid) Stat Lipase Stat Magnesium Stat NT-proBNP (BNP-Adult 18+) Stat PTT Partial Thromboplastin Breezy Stat Procalcitonin Stat Prothrombin Time INR Stat Troponin & CK Cardiac Panel Stat 10/05/24 07:25 XR chest 1V Stat EKG-12 Lead Stat 10/05/24 08:11 Respiratory Panel (Film Array) Stat Urine Culture Stat Urine Microscopic Stat 10/05/24 08:15 Blood Culture Stat 10/05/24 08:30 CT angio chest PE protocol Stat 10/05/24 09:53 Trop I [Troponin I] Stat Discontinued Medications Aspirin (Aspirin 81 Mg Chew Tab) 324 mg PO NOW ONE Stop: 10/05/24 07:26 Last Admin: 10/05/24 07:26 Dose: Not Given Documented By: LYNN Furosemide (Furosemide 40 Mg/4 Ml Vial) 40 mg IV NOW ONE Stop: 10/05/24 08:31 Last Admin: 10/05/24 10:07 Dose: 40 mg Documented By: LYNN Ceftriaxone Sodium 1,000 mg/ (Sodium Chloride) 100 mls @ 200 mls/hr IV NOW ONE Stop: 10/05/24 08:05 Last Infusion: 10/05/24 09:29 Dose: Infused Documented By: Admin: 10/05/24 08:31 Dose: 200 mls/hr Documented By: LYNN Nitroglycerin (Nitroglycerin Oint 1 Inch/Gm Oint...G.) 1 inch TOP NOW ONE Stop: 10/05/24 07:30 Last Admin: 10/05/24 08:30 Dose: 1 inch Documented By: [facility] Vital Signs Vital signs: Vital Signs - 8 hr 10/05/24 07:13 10/05/24 07:14 10/05/24 07:14 Temperature Pulse Rate 104 H 104 H Respiratory Rate Blood Pressure 184/81 H Pulse Oximetry 88 L 90 L Oxygen Delivery Method Oxygen Flow Rate 10/05/24 07:17 10/05/24 07:30 10/05/24 07:31 Temperature 98.4 F Pulse Rate 104 H 95 H 92 H Respiratory Rate 18 19 21 Blood Pressure 184/81 H Pulse Oximetry 90 L 89 L 92 Oxygen Delivery Method Room Air Nasal Cannula Oxygen Flow Rate 2 10/05/24 07:31 10/05/24 08:01 10/05/24 08:18 Temperature Pulse Rate 92 H 85 Respiratory Rate 16 Blood Pressure 176/70 H Pulse Oximetry 99 100 Oxygen Delivery Method Oxygen Flow Rate 10/05/24 08:18 10/05/24 08:30 10/05/24 08:30 Temperature Pulse Rate 84 Respiratory Rate Blood Pressure 183/72 H 159/70 H 159/70 H Pulse Oximetry Oxygen Delivery Method Oxygen Flow Rate 10/05/24 08:30 10/05/24 08:52 10/05/24 08:52 Temperature Pulse Rate 85 85 Respiratory Rate 22 18 Blood Pressure 172/70 H Pulse Oximetry 100 99 Oxygen Delivery Method Nasal Cannula Oxygen Flow Rate 2 10/05/24 08:53 10/05/24 08:53 10/05/24 09:00 Temperature Pulse Rate 89 86 Respiratory Rate 22 17 Blood Pressure 162/72 H Pulse Oximetry 99 98 Oxygen Delivery Method Oxygen Flow Rate 10/05/24 09:00 10/05/24 09:30 10/05/24 09:30 Temperature Pulse Rate 89 Respiratory Rate 20 Blood Pressure 155/68 H 162/67 H Pulse Oximetry 99 Oxygen Delivery Method Oxygen Flow Rate 10/05/24 10:00 10/05/24 10:00 10/05/24 10:13 Temperature Pulse Rate 82 Respiratory Rate 21 Blood Pressure 157/67 H 176/74 H Pulse Oximetry 99 Oxygen Delivery Method Oxygen Flow Rate 10/05/24 10:13 Temperature Pulse Rate 87 Respiratory Rate Blood Pressure Pulse Oximetry 98 Oxygen Delivery Method Oxygen Flow Rate MDM - Chest Pain Lab Data 10/05/24 06:55 10/05/24 06:55 Labs: Lab Results 10/05/24 10/05/24 10/05/24 Range/Units 06:55 08:11 09:53 WBC 17.4 H (4.5-11.0) X10^3/uL RBC 3.44 L (4.0-5.2) X10^6/uL Hgb 8.0 L (12.0-16.0) g/dL Hct 27.2 L (36-46) % MCV 79.0 L (80-100) fL MCH 23.2 L (26-34) PG MCHC 29.3 L (30-36) % RDW 19.2 H (11.6-14.8) % Plt Count 288 (150-400) X10^3/uL Neut % (Auto) 77.4 H (50-75) % Lymph % (Auto) 8.2 L (25-40) % [place] % (Auto) 11.6 (3-14) % Eos % (Auto) 1.5 L (2-4) % Baso % (Auto) 1.3 (0-2) % Neut # (Auto) 99466 H (5369-3113) /uL Lymph # (Auto) 1400 (0096-3840) /uL [place] # (Auto) 2000 H (0-900) /uL Eos # (Auto) 300 (0-450) /uL Baso # (Auto) 200 H (0-100) /uL PT 11.5 (9.4-12.5) SECONDS INR 1.0 (0.9-1.3) APTT 25 L (25.1-36.5) SECONDS D-Dimer 1254 H (<500) ng/ml Sodium 137 (137-145) mmol/L Potassium 4.0 (3.4-5.1) mmol/L Chloride 102 (98-107) mmol/L Carbon Dioxide 30 (22-32) mmol/L BUN 18 H (7-17) mg/dL Creatinine 1.10 H (0.52-1.04) mg/dL Estimated GFR 54 L (>60) mL/min BUN/Creatinine Ratio 16.4 (6-22) Glucose 152 H (80-110) mg/dL Lactate 1.2 (0.7-2.1) mmol/L Calcium 9.2 (8.4-10.2) mg/dL Magnesium 1.8 (1.6-2.3) mg/dL Total Bilirubin 0.4 (0.2-1.3) mg/dL AST 19 (14-36) IU/L ALT 16 (<35) IU/L Alkaline Phosphatase 104 (38-126) U/L Total Creatine Kinase 103 (30-135) U/L Troponin I 0.018 0.012 (0.01-0.034) ng/mL NT-Pro-B Natriuret Pep 333 H (<125) pg/mL Total Protein 6.9 (6.3-8.2) g/dL Albumin 4.0 (3.5-5.0) g/dL Globulin 2.9 (1.7-4.1) g/dL Albumin/Globulin Ratio 1.4 (1.0-2.8) Lipase 102 (23-300) U/L Procalcitonin 0.115 (<0.5) ng/mL Urine RBC None seen (0-5/HPF) Urine WBC 5-10/hpf H (0-5/HPF) Ur Squamous Epith Cells 0-1 /hpf (0-5/HPF) Urine Bacteria None seen (None) Ur Culture Indicated? Specimen cultured Vol Urine Centrifuged 10ml (spun) Chlamy pneumoniae PCR Not detected (Not Detect) Adenovirus (PCR) Not detected (Not Detect) B. pertussis DNA (PCR) Not detected (Not Detect) B.parapertussis DNA PCR Not detected (Not Detecte) Coronavirus OC43 (PCR) Not detected (Not Detect) Coronavirus HKU1 (PCR) Not detected (Not Detect) Coronavirus 229E (PCR) Not detected (Not Detect) SARS-CoV-2 (PCR) Not detected (Not Detecte) Coronavirus NL63 (PCR) Not detected (Not Detect) Human Metapneumovir PCR Not detected (Not Detect) Influenza Type A (PCR) Not detected (Not Detect) Influenza Type B (PCR) Not detected (Not Detect) M. pneumoniae (PCR) Not detected (Not Detect) Parainfluenza 1 (PCR) Not detected (Not Detect) Parainfluenza 2 (PCR) Not detected (Not Detect) Parainfluenza 3 (PCR) Not detected (Not Detect) Parainfluenza 4 (PCR) Not detected (Not Detect) RSV (PCR) Not detected (Not Detect) Entero/Rhino (PCR) Not detected (Not Detect) Urine Dip Bedside Urine Glucose Negative Bedside Urine Bilirubin - Negative Bedside Urine Ketone - Negative Urine Specific [place] 1.015 Bedside Urine Occult Blood - Negative Bedside Urine pH 6.5 Bedside Urine Protein +/- 15 Bedside Urine Urobilinogen - Negative Bedside Urine Nitrite - Negative Bedside Urine Leukocytes +/- 15 Esterase Imaging Data Chest x-ray: Radiologist's Impression: 40 UserRM ? Marisol Guallpa, DO [facility] Routine Call Back Main ED ?6? My List ?4? Fast Track ?0? Waiting ?0? Surge ED ?0? R02? Jiménez? ? Mike? 62 M? With Doctor? 40m? 2-Emergent? Shortness of Breath/Dyspnea? history of Afib/blood clots, weakness? 10/05/24 08:08? REG ER? Draft? Marisol Guallpa Order BP 115/83 Pulse 141 Resp 20 Temp 97.7 F O2 Sat 100% (RA) EKG-12 Stacy... ?Complete B... ?Chem Lipase Sta... Troponin &... ?Magnesium ... ?Prothrombi... ?PTT Partia... Imaging MAR NT-proBNP ... Cardiac mo... NPO Diet EKG-12 Stacy... R04? Matheus? ? Edith? 69 F? With Doctor? 1h 15m? 2-Emergent? Chest Pain? Chest Pain? 10/05/24 07:19? REG ER? Draft? Marisol Flores H ekg done Needs lactate, procal and cultures, resp panel urine at bedside? Order BP 176/70 Pulse 92 Resp 21 Temp O2 Sat 92% (2L/NC) ?NT-proBNP ... Lipase Sta... Magnesium ... Prothrombi... Troponin &... ?Complete B... ?Chem ?PTT Partia... Imaging ?D Dimer St... Lactate (L... MAR NPO Diet EKG-12 Stacy... Cardiac mo... Respirator... Procalcito... Microbiolo... R06? Ramirez? ? Ashley? 73 F? With Doctor? 22m? VC: 1? No Chief Complaint? upper R arm fracture, wound bleeding? 10/05/24 08:29? REG ER? No Document? Marisol Guallpa Order R07? Josse Rossjacques? ? Dona? 1y 3m F? With Doctor? 49m? 3-Urgent? Ill Child? fever, cold symptoms t-2? Sepsis? ?? 10/05/24 07:43? REG ER? Draft? Marisol Guallpa Order BP Pulse 200 Resp 34 Temp 101.7 F O2 Sat 97% (RA) MAR Respirator... R08? Pruitt? ? Bob? 56 M? Pending Admission? 1h 36m? 3-Urgent? Dizziness? feels like he is having a stroke? Sepsis? ?? 10/05/24 07:04? REG ER? Draft? Marisol Guallpa ciwa 8 @ 0819 has headache [ ] urine repeat trop/ekg @ 0925 Order BP 175/77 Pulse 104 Resp 24 Temp 97.7 F O2 Sat 94% (RA) Ethanol (E... ?Troponin &... Imaging ?Complete B... ?Chem EKG-12 Stacy... MAR TSH w/ Ref... Consult to... Urine Drug... POC/MANAN Troponin I... Creatinine... Sodium Uri... Fleming? ? Surya? 14 M? Pending Xfer to Other Facility? 14h 34m? 2-Emergent? Psychiatric Symptoms? Self Harm, Lacerations on Arms? 10/04/24 18:16? REG ER? Signed? Mike Mistry gone 0824 Preferred name: KRYSTAL Alfaro vital Accepted @ [facility] ETA 0815 Report called to [phone] Order BP 123/82 Pulse 90 Resp 17 Temp 98 F O2 Sat 99% (RA) ?Chem Ethanol (E... Lipase Sta... Urine Drug... Acetaminop... ?Complete B... Salicylate... ?Urinalysis... Covid-19 +... MAR Consult to... General (R... Imaging - XR chest 1V Edith Jarvis??69??F??1955 ? Allergy/Adv: codeine Close Imaging ACTIVITY DATE EXAM STATUS AUTHOR 10/05/24 07:25 Chest X-Ray Signed Virgilio Rubin Imaging Reports Close Chest X-Ray (Signed) Virgilio Rubin - 10/05/24 Launch?Image [address] [address] XRay Report Signed Patient: Edith Jarvis MR#: [id number] : 1955 Acct:[id number] Age/Sex: 69 / F Date of Service: 10/05/24 Loc: ED Accession Number: [id number] Procedure: XR chest 1V Ordering Provider: Marisol Guallpa D.O. PROCEDURE: XR CHEST 1V INDICATIONS: chest pain TECHNIQUE: One view of the chest was acquired. COMPARISON: [facility], , XR CHEST 1V, 10/01/2024, 11:34. FINDINGS: Surgical changes and devices: Left internal jugular central venous catheter tip is in SVC. Lungs and pleura: Mild pulmonary vascular congestion is seen. No definite focal infiltrate. No pleural effusions or pneumothorax. Mediastinum: Mediastinal contours appear normal. Heart size is mildly enlarged. Bones and chest wall: No suspicious bony lesions. Overlying soft tissues appear unremarkable. IMPRESSION: Mild cardiomegaly and pulmonary vascular congestion. No definite focal infiltrate. No pleural effusion or pneumothorax. Dictated by: Virgilio Rubin M.D. on 10/05/2024 at 8:15 Approved by: Virgilio Rubin M.D. on 10/05/2024 at 8:15 ECG Data Attestation: I personally reviewed and interpreted this ECG as follows: Prior ECG tracings: available for review Interpretation: Sinus rhythm premature atrial complex, rate of 100 WI 138 QRS of 90 QTC of 464. No acute ST elevation or depression noted on EKG. EKG shows prior from 08/24/2024 which appears similar. MDM Narrative Medical decision making narrative: 69-year-old female with known vascular disease with prior stents in her legs and endarterectomy who presents with complaint of substernal chest pain that started at 8:00 a.m. last night has been persistent without resolution and shortness of breath. Patient notes that she has been anemic recently supposed to be scheduled for iron transfusions but unclear source. Patient's O2 sat did dip into the high 80s. Placed on 2 L and improved to 100%. EKG shows sinus rhythm no acute ST changes Chest x-ray mild cardiomegaly and pulmonary vascular congestion, no definite focal infiltrates no pleural effusion or pneumothorax. Labs white count of 17.4, hemoglobin of 8 patient's microcytic, predominance of neutrophils with platelets of 288. Coags are overall appropriate creatinine is 1.10, BUN 18 sodium 137 potassium of 4 chloride of 102 with a CO2 of 30, glucose of 152 Mag is 1.8, LFTs are negative troponin 0.018 with a BNP of 333. Patient has had most 12 hours of chest pain negative troponin. Lactate is 1.2 And procalcitonin is 0.115. Repeat troponin is 0.012 Blood cultures were obtained Respiratory panel is negative. D-dimer was added on has Herbert's chest x-ray was negative, patient's hypoxic with complaint of chest pain and shortness of breath minimally elevated BNP although she does have some edema bilateral lower extremities. Was positive even with age adjustment and CT chest angio was obtained which shows no acute pulmonary embolism, no acute abnormality noted throughout moderate coronary artery calcifications. Patient has been hypertensive. Patient did have nitro paste placed as she had nitro on morphine which was helpful. On re-evaluation she feels much improved. Patient's white count is quite elevated, she was little bit hypoxic, covered potential pneumonia with Rocephin while awaiting workup. Patient Lasix ordered is exam is somewhat consistent with CHF and had drop in O2 she was initially reluctant but after discussion was given. Spoke with Dr. Islas, hospitalist . Asked for repeat troponin. Reviewed treatment thus far. If negative plan for observation with tele. Discharge Plan Departure Patient Disposition: Admitted as Observation Clinical Impression: Chest pain, CHF (congestive heart failure) Admit Date/Time: 10/05/24 10:33 Admit Provider: Jhonny Islas
--- NOTE | 2024-10-05 07:25 | DI.RAD.S_ITS ---
PROCEDURE: XR CHEST 1V INDICATIONS: chest pain TECHNIQUE: One view of the chest was acquired. COMPARISON: [facility], CR, XR CHEST 1V, 10/01/2024, 11:34. FINDINGS: Surgical changes and devices: Left internal jugular central venous catheter tip is in SVC. Lungs and pleura: Mild pulmonary vascular congestion is seen. No definite focal infiltrate. No pleural effusions or pneumothorax. Mediastinum: Mediastinal contours appear normal. Heart size is mildly enlarged. Bones and chest wall: No suspicious bony lesions. Overlying soft tissues appear unremarkable. IMPRESSION: Mild cardiomegaly and pulmonary vascular congestion. No definite focal infiltrate. No pleural effusion or pneumothorax. Dictated by: Virgilio Rubin M.D. on 10/05/2024 at 8:15 Approved by: Virgilio Rubin M.D. on 10/05/2024 at 8:15
[2024-10-05 07:36] LABS: Add Manual Diff / Slide Review NO; Basophils Absolute Auto 200 /uL (0-100); Basophils Percent Auto 1.3 % (0-2); Eosinophils Absolute Auto 300 /uL (0-450); Eosinophils Percent Auto 1.5 % (2-4); Hematocrit 27.2 % (36-46); Lymphocytes Absolute Auto 1400 /uL (1100-4500); Lymphocytes Percent Auto 8.2 % (25-40); Mean Corpuscular HGB Conc 29.3 % (30-36); Mean Corpuscular Hemoglobin 23.2 PG (26-34); Monocytes Absolute Auto 2000 /uL (0-900); Monocytes Percent Auto 11.6 % (3-14); Neutrophils Absolute Auto 13400 /uL (1500-7000); Neutrophils Percent Auto 77.4 % (50-75); Platelet Count 288 X10^3/uL (150-400); Red Blood Cell Count 3.44 X10^6/uL (4.0-5.2); Red Cell Distribution Width 19.2 % (11.6-14.8); White Blood Cell Count 17.4 X10^3/uL (4.5-11.0)
[2024-10-05 07:40] LABS: Prothrombin Time 11.5 SECONDS (9.4-12.5)
[2024-10-05 07:43] LABS: PTT Partial Thromboplastin Tim 25 SECONDS (25.1-36.5)
[2024-10-05 07:44] LABS: Alanine Aminotransferase 16 IU/L (<35); Albumin Globulin Ratio 1.4 (1.0-2.8); Alkaline Phosphatase 104 U/L (38-126); Aspartate Aminotransferase 19 IU/L (14-36); BUN Creatinine Ratio 16.4 (6-22); Bilirubin Total 0.4 mg/dL (0.2-1.3); Blood Urea Nitrogen 18 mg/dL (7-17); Calcium 9.2 mg/dL (8.4-10.2); Carbon Dioxide 30 mmol/L (22-32); Chloride 102 mmol/L (98-107); Creatine Kinase 103 U/L (30-135); Estimated Glomerular Filt Rate 54 mL/min (>60); Globulin 2.9 g/dL (1.7-4.1); Glucose 152 mg/dL (80-110); HEMOLYSIS < 15 (0-50); Lipase 102 U/L (23-300); Magnesium 1.8 mg/dL (1.6-2.3); Sodium 137 mmol/L (137-145); Total Protein 6.9 g/dL (6.3-8.2)
[2024-10-05 07:56] LABS: NT-proBNP (BNP-Adult 18+) 333 pg/mL (<125); Troponin I 0.018 ng/mL (0.01-0.034)
[2024-10-05 08:18] LABS: D Dimer 1254 ng/ml (<500)
[2024-10-05 08:19] LABS: Lactate (Lactic Acid) 1.2 mmol/L (0.7-2.1)
[2024-10-05] MEDS: NITROGLYCERIN OINT 1 INCH/GM OINT...G. TOP (08:30)
--- NOTE | 2024-10-05 08:30 | DI.CT.S_ITS ---
PROCEDURE: CT ANGIO CHEST PE PROTOCOL INDICATIONS: cp, sob, hypoxia, elevated dimer TECHNIQUE: After the administration of intravenous contrast, 2 mm thick sections acquired from the pulmonary apices to the posterior costophrenic angles. 3-dimensional maximum intensity projection (MIP) coronal and sagittal reformats were then acquired through the thorax. For radiation dose reduction, the following was used: automated exposure control, adjustment of mA and/or kV according to patient size. COMPARISON: [facility], CR, XR CHEST 1V, 10/05/2024, 7:26. FINDINGS: Image quality: Diagnostic. Pulmonary arteries: Pulmonary arteries are normal in size, and demonstrate no intraluminal filling defects to suggest central pulmonary embolism. Lower Neck: No enlarged lymph nodes. Thyroid: No thyroid nodules which require sonographic follow up, per consensus guidelines. Axillae: No enlarged lymph nodes. Chest Wall: Unremarkable. Bones: Unremarkable. Lungs and Pleura: No pneumothorax or pleural effusions. No consolidation or suspicious nodules. a benign calcified granuloma is seen at the left lower lobe. Heart: Heart size is normal. No pericardial effusion. 2 vessel coronary artery calcifications. Thoracic Vessels: No aortic aneurysm. Mediastinum and Cele: No enlarged lymph nodes. Esophagus: No wall thickening. No hiatal hernia. Upper Abdomen: Reflux of contrast material is seen into the hepatic veins. Visualized upper abdomen solid organs and bowel loops appear normal. IMPRESSION: 1. No acute pulmonary embolus. No acute abnormality is seen in the chest. 2. Moderate coronary artery calcifications. Approved by: Giovani Tejeda M.D. on 10/05/2024 at 9:07
[2024-10-05] MEDS: cefTRIAXone 1,000 MG in SODIUM CHLORIDE 0.9% 100 ML 200 MG IV (08:31)
[2024-10-05 08:36] LABS: Procalcitonin 0.115 ng/mL (<0.5)
[2024-10-05 09:09] LABS: Bacteria Urine None Seen; Culture Indicated Urine Specimen Cultured; RBC Urine None Seen (0-5/HPF); Squamous Epithelial Cell Urine 0-1 /HPF (0-5/HPF); Urine Volume 10mL (spun); WBC Urine 5-10/HPF (0-5/HPF)
[2024-10-05 09:15] LABS: Adenovirus Not Detected (Not Detect); B. parapertussis Not Detected (Not Detecte); Bordetella pertussis Not Detected (Not Detect); Chlamydophila pneumoniae Not Detected (Not Detect); Coronavirus 229E Not Detected (Not Detect); Coronavirus HKU1 Not Detected (Not Detect); Coronavirus NL 63 Not Detected (Not Detect); Coronavirus OC43 Not Detected (Not Detect); Human Metapneumovirus Not Detected (Not Detect); Human Rhinovirus/Enterovirus Not Detected (Not Detect); Influenza A Not Detected (Not Detect); Influenza B Not Detected (Not Detect); Mycoplasma pneumoniae Not Detected (Not Detect); Parainfluenza Virus 1 Not Detected (Not Detect); Parainfluenza Virus 2 Not Detected (Not Detect); Parainfluenza Virus 3 Not Detected (Not Detect); Parainfluenza Virus 4 Not Detected (Not Detect); Respiratory Syncytial Virus Not Detected (Not Detect); SARS- CoV-2 Not Detected (Not Detecte)
[2024-10-05] MEDS: FUROSEMIDE 40 MG/4 ML VIAL IV (10:07)
[2024-10-05 10:27] LABS: Troponin I 0.012 ng/mL (0.01-0.034)
--- NOTE | 2024-10-05 12:05 | DI.ECHO.S_ITS ---
[place] +---------+ [facility] : : [address] : : [place] : : [id number] : : Phone: [phone] Echocardiogram Report + + :Name: CHIDI SEARS Study Date: 10/05/2024 Height: 68 in : :Hospital ReadingLocation: Weight: 240 lb : : Gender: Female BSA: 2.2 m2 : :: 1955 Age: 69 yrs BP: 165/69 mmHg: :Reason For Study: CHEST PAIN : :Ordering Physician: LIBRA, : :TANNER FRIED Performed By: Kourtney Dow : :Referring: TANNER SMYTH : + + Interpretation Summary 1) Mildly increased left ventricular thickness (concentric) with normal size, normal wall motion, and normal systolic function (EF 65-70%). 2) Dynamic LVOT gradient noted (peak gradient 65mmHg with valsalva). Heart rate 100-110bpm. 3) Normal right ventricular size and function. 4) No significant valvular abnormalities. 5) No prior Echo available for comparison. Procedure: A two-dimensional transthoracic echocardiogram with color flow and Doppler was performed. The study quality was technically adequate. There is no prior echocardiogram noted for this patient. The patient was in sinus tachycardia with heart rates between 103-110 bpm during the exam. Left Ventricle: The left ventricle is normal in size. There is mild concentric left ventricular hypertrophy. The ejection fraction is estimated to be 65-70%. Left ventricular systolic function appears normal without focal wall motion abnormalities. Right Ventricle: The right ventricle is normal in size and function. Atria: The left atrium is mildly dilated. Right atrial size is normal. There is no Doppler evidence for an interatrial shunt. Mitral Valve: There is moderate mitral annular calcification. The mitral valve leaflets are moderately calcified. There is moderate mitral stenosis. The mitral valve mean gradient is 6.6 mmHg. There is mild mitral regurgitation. Aortic Valve: The aortic valve is mildly calcified. The aortic valve is trileaflet. The peak aortic velocity is 2.2 m/sec. The aortic valve mean gradient is 12 mmHg. No aortic regurgitation is present. Tricuspid Valve: The tricuspid valve is normal in structure and function. There is a trace or physiologic amount of tricuspid regurgitation. Pulmonary artery pressures cannot be estimated because of the lack of a measurable TR jet velocity. Pulmonic Valve: The pulmonic valve leaflets are thin and pliable; valve motion is normal. There is mild pulmonic regurgitation. Great Vessels: The aortic root is normal size. The dimensions of the ascending aorta are normal. The IVC is of normal diameter and collapses greater than 50% with a sniff. This suggests a low right atrial pressure of 3 mm Hg. Pericardium/ Pleura There is no pericardial effusion. There is no pleural effusion. MMode/2D Measurements & Calculations LVIDd: 4.4 cm LVOT diam: 1.9 cm LVIDs: 3.0 cm Ao root diam: 2.9 cm FS: 32.2 % asc Aorta Diam: 3.2 cm IVSd: 1.3 cm Ao Arch Diam (Prox Trans): 3.1 cm LVPWd: 1.2 cm LV chacko. diameter/BSA (cm/m^2): 2.0 LV sys. diameter/BSA (cm/m^2): 1.4 LA A2 area: 21.4 cm2 RA long axis: 5.3 cm LA A4 area: 21.7 cm2 RA area: 15.5 cm2 LA length (vol): 5.3 cm RA vol: 38.4 ml LA vol: 73.9 ml RA : 17.4 ml/m2 LA vol index: 33.5 ml/m2 IVC diam: 2.0 cm RVD1 (basal): 3.6 cm RVD2 (mid): 2.7 cm TAPSE: 2.4 cm Doppler Measurements & Calculations Ao V2 max: 216.7 cm/sec MV E max bebo: 144.6 cm/sec Ao V2 mean: 165.7 cm/sec MV A max bebo: 173.0 cm/sec Ao max P.1 mmHg MV E/A: 0.84 Ao mean P.1 mmHg Med Peak E' Bebo: 6.9 cm/sec Ao V2 VTI: 37.8 cm E/E' med: 21.1 Lat Peak E' Bebo: 7.4 cm/sec E/E' lat: 19.6 E/e' average: 20.3 MV dec time: 0.21 sec PA V2 max: 122.5 cm/sec MV V2 mean: 122.3 cm/sec PA V2 mean: 91.3 cm/sec MV mean P.6 mmHg PA mean P.5 mmHg MV V2 VTI: 35.9 cm PA pr(Accel): 27.6 mmHg Reading Physician:04:36 PM
--- NOTE | 2024-10-05 12:05 | DI.NM.S_ITS ---
PROCEDURE: NM WANDA PERF SPECT SINGLE STUDY Resting myocardial perfusion SPECT, with gated imaging and ejection fraction RADIOPHARMACEUTICAL: 27.5 mCi 99m-Tc sestamibi intravenously. INDICATIONS: chest pain PQRS ATTESTATIONS: Measure 322 - Is this imaging test primarily performed on a low-risk surgery patient for preoperative evaluation within 30 days preceding their low-risk non-cardiac surgery? Low-risk surgery is defined as cardiac or myocardial infarction less than 1%, including (but not limited to) endoscopic procedures, superficial procedures, cataract surgery, and excisional breast surgery: Answer: No Measure 323 - Is this imaging test performed primarily for the monitoring of an asymptomatic patient who had percutaneous coronary intervention on the visit date or within 2 years of the visit date? Answer: No Measure 324 - Is this imaging test performed primarily for the initial detection and risk assessment on an asymptomatic, low coronary heart disease patient? Low CHD risk definition = clinicians should consider the maximum number of available patient factors used to estimate risk based on [place] (ATP III criteria), typically age, gender, diabetes, smoking status, and use of blood pressure medication, and integrate age appropriate estimates for missing elements, such as LDL or standard blood pressure. Answer: No TECHNIQUE: Radiopharmaceutical was injected at rest. SPECT images were obtained. SPECT myocardial perfusion images were displayed in short axis, horizontal long axis, and vertical long axis views. Gated images were reviewed using [employer] software. COMPARISON: None. FINDINGS: Raw data: There is good tracer uptake by the myocardium. No significant motion artifacts. Jiuq-fd-ljebc ratio is not calculated (normal is less than 0.38 for sestamibi tracer, and less than 0.50 for thallium tracer). Left ventricle function: Gated images demonstrate left ventricle wall thickening. No segmental wall motion abnormalities. No transient ischemic dilation. Left ventricle resting end-diastolic volume is 109 mL. Left ventricle resting ejection fraction is 71; normal values are above 45%. Myocardial perfusion: There is slight hypoperfusion in the mid anterior segment. IMPRESSION: Abnormal resting myocardial perfusion scan due to the presence of slight hypoperfusion in the mid anterior segment. Dictated by: Rocky Rubin M.D. on 10/11/2024 at 16:48 Approved by: Rocky Rubin M.D. on 10/11/2024 at 16:50
--- NOTE | 2024-10-05 12:24 | P.HP_ITS ---
History of Present Illness History of Present Illness Date Patient Seen: 10/05/24 Time Patient Seen: 12:28 Chief complaint: Chest Pain Narrative: This is a 69-year-old female with a past medical history of hypertension, hyperlipidemia, peripheral vascular disease, obesity, hydrocephalus with [employer]PORATE TRAV[employer] shunt placement in 2007, CKD, single functional kidney, and ? CHF who presents with chest pressure. Patient states starting last night she had severe chest pressure / ache. It was left sided, non-radiating. She would get palpitations and worse with movement. It has since subsided greatly, improved with nitro with EMS and a nitro patch placed in the ER. She denies diaphoresis, nausea, or vomiting. Denies recent fever, chills, nasal congestion, cough. She cannot lay flat due to her [employer]POR[employer] TRA[employer] shunt at night, she has poor exercise tolerance at baseline due to her PVD. She has had 50 lb weight gain over the past two years. Over the past few months some lower extremity edema for which she was started on torsemide. Just saw Dr. Grissom laboratory monitor locally, but no recent stress testing ordered. Her recent BP and leg swelling is actually been a bit improved after starting torsemide. In the ER, she was initially mildly hypertensive which did improve after 40 mg of furosemide was given. D-dimer was elevated, CTA chest was negative. Imaging showed possible cardiomegaly with likely pulmonary edema. There was mild leukocytosis with a WBC of 17.4, Cr 1.1 consistent with outpatient baseline per review of nephrology notes. Troponins were negative x2. Respiratory panel was negative as was a urinalysis. She was admitted for further evaluation of her chest discomfort. 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, without long-term current use of insulin Former smoker Hyperlipidemia Unsteady gait when walking Peripheral vascular disease (~2018) Hydrocephalus Carotid artery stenosis Resistant hypertension Surgical History Anesthesia History of brain shunt (~1999) History of tubal ligation (~1979) Family History Father Cancer Hyperlipidemia Hypertension Stroke Mother History of heart disease Hyperlipidemia Hypertension Brother History of hip replacement Hyperlipidemia Brother History of heart attack Social History household members: significant other Smoking Status: Former smoker alcohol intake: current Meds Home Medications and Allergies Home Medications Medication Instructions Recorded Confirmed Type albuterol sulfate 90 mcg/actuation 1 - 2 inh inhalation Q4-6H PRN 03/16/24 10/05/24 Rx aerosol inhaler shortness of breath or wheezing #25.5 grams rosuvastatin 40 mg tablet (Crestor) 40 mg PO DAILY #90 tabs 03/16/24 10/05/[address] permit #1 ea 03/17/24 10/05/24 Rx clonidine HCl 0.1 mg tablet 0.1 mg PO BEDTIME #90 tabs 06/04/24 10/05/24 Rx amlodipine 2.5 mg tablet (Norvasc) 2.5 mg PO DAILY blood pressure #90 07/21/24 10/05/24 Rx tabs lisinopril 40 mg tablet 40 mg PO DAILY blood pressure #90 07/21/24 10/05/24 Rx tabs torsemide 20 mg tablet 10 mg PO DAILY 09/03/24 10/05/24 History semaglutide 0.25 mg or 0.5 mg (2 0.25 mg (0.368 mL) SUBCUT QWEEK #9 09/08/24 10/05/24 Rx mg/3 mL) subcutaneous pen injector mL (Ozempic) alprazolam 0.5 mg tablet (Xanax) 0.5 mg PO DAILY PRN eye injections 09/29/24 10/05/24 Rx #14 tabs cholecalciferol (vitamin D3) 10 10 mcg PO DAILY 10/05/24 10/05/24 History mcg (400 unit) capsule (Vitamin D3) Allergies Allergy/AdvReac Type Severity Reaction Status Date / Time codeine AdvReac Intermediate sick Verified 09/29/24 10:36 Review of Systems Review of Systems Narrative: All other systems reviewed with the patient and are negative unless otherwise stated. Exam Vital Signs (past 8 hours): - 10/05/24 07:13 10/05/24 07:14 10/05/24 07:14 Temperature Pulse Rate 104 H 104 H Respiratory Rate Blood Pressure 184/81 H Pulse Oximetry 88 L 90 L Oxygen Delivery Method Oxygen Flow Rate 10/05/24 07:17 10/05/24 07:30 10/05/24 07:31 Temperature 98.4 F Pulse Rate 104 H 95 H 92 H Respiratory Rate 18 19 21 Blood Pressure 184/81 H Pulse Oximetry 90 L 89 L 92 Oxygen Delivery Method Room Air Nasal Cannula Oxygen Flow Rate 2 10/05/24 07:31 10/05/24 08:01 10/05/24 08:18 Temperature Pulse Rate 92 H 85 Respiratory Rate 16 Blood Pressure 176/70 H Pulse Oximetry 99 100 Oxygen Delivery Method Oxygen Flow Rate 10/05/24 08:18 10/05/24 08:30 10/05/24 08:30 Temperature Pulse Rate 84 Respiratory Rate Blood Pressure 183/72 H 159/70 H 159/70 H Pulse Oximetry Oxygen Delivery Method Oxygen Flow Rate 10/05/24 08:30 10/05/24 08:52 10/05/24 08:52 Temperature Pulse Rate 85 85 Respiratory Rate 22 18 Blood Pressure 172/70 H Pulse Oximetry 100 99 Oxygen Delivery Method Nasal Cannula Oxygen Flow Rate 2 10/05/24 08:53 10/05/24 08:53 10/05/24 09:00 Temperature Pulse Rate 89 86 Respiratory Rate 22 17 Blood Pressure 162/72 H Pulse Oximetry 99 98 Oxygen Delivery Method Oxygen Flow Rate 10/05/24 09:00 10/05/24 09:30 10/05/24 09:30 Temperature Pulse Rate 89 Respiratory Rate 20 Blood Pressure 155/68 H 162/67 H Pulse Oximetry 99 Oxygen Delivery Method Oxygen Flow Rate 10/05/24 10:00 10/05/24 10:00 10/05/24 10:13 Temperature Pulse Rate 82 Respiratory Rate 21 Blood Pressure 157/67 H 176/74 H Pulse Oximetry 99 Oxygen Delivery Method Oxygen Flow Rate 10/05/24 10:13 10/05/24 10:30 10/05/24 11:00 Temperature Pulse Rate 87 94 H 78 Respiratory Rate 24 Blood Pressure Pulse Oximetry 98 99 Oxygen Delivery Method Oxygen Flow Rate 10/05/24 11:06 10/05/24 11:06 10/05/24 11:24 Temperature Pulse Rate 101 H Respiratory Rate Blood Pressure 165/69 H Pulse Oximetry 93 98 Oxygen Delivery Method Nasal Cannula Oxygen Flow Rate 2 10/05/24 11:49 10/05/24 12:00 Temperature 97.3 F L Pulse Rate 79 Respiratory Rate 16 Blood Pressure 135/46 L Pulse Oximetry 97 Oxygen Delivery Method Room Air Oxygen Flow Rate 0 Oxygen Delivery Method Room Air Oxygen Flow Rate 0 Narrative Exam Narrative: General:? Patient is well developed and well nourished, in no distress at this time. HEENT:? Normocephalic, atraumatic, extraocular muscles intact, oral pharynx is clear and mucous membranes are moist. Neck: supple and symmetric, trachea is midline, no cervical adenopathy. Negative for JVD Chest:? Normal AP diameter and contour without kyphoscoliosis, no tachypnea, equal chest rise bilaterally. Lungs:? CTA b/l no wheezing rhonchi or rales. Cardio:?RRR no m/r/g. Abdomen: S NT ND. No CVA tenderness. Musculoskeletal:? Muscle strength and tone are equal within normal limits, no deformity. Extremities: Trace bilateral pitting edema, R slightly greater than L. No joint effusions. No cyanosis or clubbing. Skin:? Pale,? Warm to touch,dry and intact without rashes, ulcerations or petechiae.? Neuro:? Alert and orientated x3,? sensation to touch intact in all extremities, no gross deficits noted of cranial nerves. Psych:? Patient has a well-kept appearance, appropriate affect, mental status attitude thought context and judgment are appropriate for age. Objective ECG Impression: Normal sinus rhythm with occasional PACs, no evidence of acute ischemia. Labs 10/05/24 06:55 10/05/24 06:55 Labs: Laboratory Results - last 24 hr 10/05/24 10/05/24 10/05/24 06:55 08:11 09:53 WBC 17.4 H RBC 3.44 L Hgb 8.0 L Hct 27.2 L MCV 79.0 L MCH 23.2 L MCHC 29.3 L RDW 19.2 H Plt Count 288 Neut % (Auto) 77.4 H Lymph % (Auto) 8.2 L [place] % (Auto) 11.6 Eos % (Auto) 1.5 L Baso % (Auto) 1.3 Neut # (Auto) 47682 H Lymph # (Auto) 1400 [place] # (Auto) 2000 H Eos # (Auto) 300 Baso # (Auto) 200 H PT 11.5 INR 1.0 APTT 25 L D-Dimer 1254 H Sodium 137 Potassium 4.0 Chloride 102 Carbon Dioxide 30 BUN 18 H Creatinine 1.10 H Estimated GFR 54 L BUN/Creatinine Ratio 16.4 Glucose 152 H Lactate 1.2 Calcium 9.2 Magnesium 1.8 Total Bilirubin 0.4 AST 19 ALT 16 Alkaline Phosphatase 104 Total Creatine Kinase 103 Troponin I 0.018 0.012 NT-Pro-B Natriuret Pep 333 H Total Protein 6.9 Albumin 4.0 Globulin 2.9 Albumin/Globulin Ratio 1.4 Lipase 102 Procalcitonin 0.115 Urine RBC None seen Urine WBC 5-10/hpf H Ur Squamous Epith Cells 0-1 /hpf Urine Bacteria None seen Ur Culture Indicated? Specimen cultured Vol Urine Centrifuged 10ml (spun) Chlamy pneumoniae PCR Not detected Adenovirus (PCR) Not detected B. pertussis DNA (PCR) Not detected B.parapertussis DNA PCR Not detected Coronavirus OC43 (PCR) Not detected Coronavirus HKU1 (PCR) Not detected Coronavirus 229E (PCR) Not detected SARS-CoV-2 (PCR) Not detected Coronavirus NL63 (PCR) Not detected Human Metapneumovir PCR Not detected Influenza Type A (PCR) Not detected Influenza Type B (PCR) Not detected M. pneumoniae (PCR) Not detected Parainfluenza 1 (PCR) Not detected Parainfluenza 2 (PCR) Not detected Parainfluenza 3 (PCR) Not detected Parainfluenza 4 (PCR) Not detected RSV (PCR) Not detected Entero/Rhino (PCR) Not detected Assessment & Plan Assessment & Plan narrative: 1. Chest pain, severe, improved, present on admission. - HEART score 5-6, intermediate risk. concerning for cardiac etiology given history. EKG without ischemic changes. - troponins negative x2, okay to proceed with stress testing - may also be related to volume overload, though she appears more euvolemic on exam. - TTE ordered - continue telemetry 2. Possible acute on chronic heart failure, uncertain type - 40 mg furosemide given in ER - does not appear vastly volume overloaded on exam on admission, will continue home torsemide tomorrow rather than further diuresis at this time. - TTE ordered - consider further diuresis or slight increase in home torsemide, she is not hypoxic. Will know a bit more after echo. 3. HTN - continue home amlodipine, torsemide for now (depending on need for additional diursesis), clonidine per PCP note should be prn only. 4. HLD - continue home statin 5. PVD - continue home statin, plavix 6. Obesity - The patient is at much higher risk for medical and surgical complications because of their obesity. This increases the difficulty and complexity of medical and surgical interventions and increases the chances of poor outcomes such as morbidity and mortality. 7. Hydrocephalus s/p [employer] Shunt - stable 8. DM2 - carb consistent diet - Due for ozempic today will hold - RIKI 9. CKD - cr stable at 1.1 from outpatient labs, monitor daily with bmp with diuresis. Code: Full, surrogate is patient's spouse DVT: Lovenox daily I have utilized all available immediate resources to obtain, update, or review the patient's current medications. Dispo: patient admitted under observation status Additional history obtained via discussions with the ER provider. These discussions contributed to the creation of the above assessment and plan. I have reviewed patient's presenting documentation, labs, and imaging personally. Time-Based Coding :: [TOTAL MINUTES] spent with patient and on the chart (including review of chart, obtaining history, exam, reviewing outside data, placing orders, documenting exam and treatment plan, and counseling patient) on [DATE]. Quality VTE Deep Vein Thrombosis/Pulmonary Embolism Present on Admission: No
--- NOTE | 2024-10-05 15:25 | EKG_ITS ---
[place] [address] [place] [id number] Test Date: 2024-10-05 Pat Name: Edith Jarvis [facility] Room: 223 Gender: Female Customs Director: [email or web address] : 1955 Requested By: Order Number: [id number] Reading MD: Jhonny Islas Measurements Intervals [place] Rate: 106 P: 61 DE: 144 QRS: 40 QRSD: 92 T: 87 QT: 350 QTc: 464 Interpretive Statements Sinus tachycardia Electronically Signed On 10-05-2024 18:50:00 PST by Jhonny Islas
[2024-10-05 17:01] LABS: Troponin I 0.014 ng/mL (0.01-0.034)
[2024-10-05] MEDS: NITROGLYCERIN 0.4 MG SL TAB SL ×3 (17:16→17:34)
[2024-10-05] MEDS: ACETAMINOPHEN 325 MG TABLET 650 MG PO (17:21)
--- NOTE | 2024-10-05 17:41 | PC.NURSE ---
Pt c/o 6-06/09 chest pain, not relieved with rest. Provider notified. New orders received. Pt reports chest pain improvement after administration of SL nitroglycerin (See MAR), 02/07 discomfort. HR 100's sinus, BP WDL. Care ongoing.
[2024-10-06] VITALS (16 sets, daily range): BP systolic 133–183; BP diastolic 47–70; PULSE 87–104; RESP 16–21; TEMP 36.2–37.2; O2SAT 95–99
--- NOTE | 2024-10-06 01:49 | EKG_ITS ---
[place] [address] [address], [place] [address] Test Date: 2024-10-06 Pat Name: Edith Jarvis Department: Room: 223 Gender: Female Relocation Associate: jessica : 1955 Requested By: Order Number: [id number] Reading MD: Gregory Stevens MD Measurements Intervals [place] Rate: 102 P: 63 OK: 140 QRS: 33 QRSD: 90 T: 77 QT: 344 QTc: 448 Interpretive Statements Sinus tachycardia with premature atrial complexes Electronically Signed On 10-06-2024 8:03:36 PST by Gregory Stevens MD
[2024-10-06] MEDS: LORazepam 1 MG TABLET PO ×3 (02:07→18:26)
--- NOTE | 2024-10-06 02:48 | EKG_ITS ---
[facility] [address] [place] [address] Test Date: 2024-10-06 Pat Name: Edith Jarvis Department: Room: 223 Gender: Female Dip Tanker: tahira cooper : 1955 Requested By: Order Number: [id number] Reading MD: Gregory Stevens MD Measurements Intervals [place] Rate: 172 P: [place]: QRS: 50 QRSD: 88 T: 110 QT: 284 QTc: 480 Interpretive Statements Supraventricular tachycardia ST depression, consider subendocardial injury Abnormal QRS-T angle, consider primary T wave abnormality Electronically Signed On 10-06-2024 8:03:53 PST by Gregory Stevens MD
[2024-10-06 03:13] LABS: Add Manual Diff / Slide Review NO; Basophils Absolute Auto 100 /uL (0-100); Eosinophils Absolute Auto 200 /uL (0-450); Eosinophils Percent Auto 1.5 % (2-4); Hematocrit 23.8 % (36-46); Lymphocytes Absolute Auto 1200 /uL (1100-4500); Lymphocytes Percent Auto 11.9 % (25-40); Mean Corpuscular HGB Conc 29.6 % (30-36); Mean Corpuscular Hemoglobin 23.2 PG (26-34); Mean Corpuscular Volume 78.3 fL (80-100); Monocytes Absolute Auto 1300 /uL (0-900); Monocytes Percent Auto 12.4 % (3-14); Neutrophils Absolute Auto 7500 /uL (1500-7000); Neutrophils Percent Auto 73.2 % (50-75); Platelet Count 234 X10^3/uL (150-400); Red Blood Cell Count 3.04 X10^6/uL (4.0-5.2); Red Cell Distribution Width 18.8 % (11.6-14.8); White Blood Cell Count 10.2 X10^3/uL (4.5-11.0)
[2024-10-06] MEDS: ACETAMINOPHEN 325 MG TABLET 650 MG PO ×2 (03:14→20:24)
[2024-10-06 03:37] LABS: BUN Creatinine Ratio 16.4 (6-22); Blood Urea Nitrogen 20 mg/dL (7-17); Calcium 8.5 mg/dL (8.4-10.2); Carbon Dioxide 30 mmol/L (22-32); Chloride 102 mmol/L (98-107); Cholesterol 87 mg/dL (140-199); Estimated Glomerular Filt Rate 47 mL/min (>60); Glucose 148 mg/dL (80-110); HDL Cholesterol 33 mg/dL (40-60); HEMOLYSIS < 15 (0-50); LDL Cholesterol Calculated 35 mg/dL (<100); Magnesium 1.9 mg/dL (1.6-2.3); Potassium 4.3 mmol/L (3.4-5.1); Sodium 136 mmol/L (137-145); Triglycerides 96 mg/dL (35-150)
[2024-10-06 03:40] LABS: Hemoglobin A1C% w Est Avg Glu 6.9 % (4.0-6.0)
[2024-10-06 03:49] LABS: Troponin I 0.083 ng/mL (0.01-0.034)
--- NOTE | 2024-10-06 04:29 | PC.NURSE ---
At approx 0140, this RN was notified that the patient was complaining of spastic movement and that the patient thought she was having a seizure. This RN entered the room, patient exhibiting minor twitches in face and body. Alert and oriented. NIHSS 0, no visual changes, no numbness or tingling, appropriate CMS all extremities, denies headache, denies nausea, denies dizziness. 1-2+ pitting edema BLE. PERRLA. Patient remains on 3L NC SPO2 98%, BP 178/58 MAP 98, HR 90s, RR 20. At that time, ICU stated no abnormal change in telemetry- SENIOR OCCUPATIONAL THERAPIST S Allen states normal sinus rhythm. Patient states that she has a brain shunt, and that it's failed a few times before. When asked if the symptoms presented in a similar way, patient denied, stating she had lost consciousness in prior episodes. Patient explains current spasms as feeling like an electric shock. Patient then informed this RN that these twitches have been happening to her at night for a while now, and they have gradually been getting worse, with today's episode as currently the worst one yet. EKG obtained, Sinus Tachycardia w/ PACs, HR 102. Provider made aware. Ordered 1 mg PO ativan Q6h prn. Administered at 0207. BP 155/60 HR 99 SPO2 96% 3L NC. At 0240, pt's twitching had increased significantly in strength and frequency, almost continuous. Patient still alert and oriented, NIHSS 0, denies visual changes, no numbness or tingling, PERRLA, denies headache, nausea, dizziness. Provider was able to visualize the increased twitching via telecommunication. At approx 0245 patient began complaining of chest discomfort. Upon questioning, chest pain is worse upon deep breathing and is slight when shallow breathing. During this assessment, patient went into SVT HR 160s. Patient able to utilize vagal maneuvers to return to normal sinus rhythm tachycardia 90-100, but would return to SVT within a few minutes. Provider notified. Labs drawn early, added troponin. EKG obtained during SVT episode @ rate of 160. Ordered adenosine 6 mg IVP x1- not given, as just before administration, patient returned to sinus tach HR 90-100s. At approx 0305, patient had been out of SVT for 10 minutes. Twitching dramatically reduced. Patient complains of headache, administered tylenol. Provider made aware. No further orders given. BP 150/62, HR 99, SPO2 96% 3L NC. Lab resulted with H/H 7.0/23.8 down from 8.0/27.2 and troponin elevated to 0.083 from 0.014 approx 12 hours ago. Patient sleeping.
[2024-10-06 05:10] LABS: TSH w/ Reflex to FT4 2.14 uIU/mL (0.47-4.68)
[2024-10-06] MEDS: ENOXAPARIN 40 MG/0.4 ML SYRINGE SUBCUT (08:36)
[2024-10-06] MEDS: TORSEMIDE 10 MG TABLET PO (08:36)
[2024-10-06] MEDS: ACETAMINOPHEN 325 MG TABLET 975 MG PO (08:36)
--- NOTE | 2024-10-06 09:32 | CM.DANOTE ---
DCP Assessment Note- Brief Pt is a 69yo F here with chest pain/CHF. PCP Pennie Correaer medicare and RENE WESTON reviewed EMR. per chart, pt lives at [facility] indep. per chart, pt had a twitching event overnight, has a brain shunt that pt reports has failed before, see RN note for more. 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 echo pending. P: anticipate return to [facility] once medically stable. No identified CM needs at this time. CM team will continue to follow closely [facility] Melo Discharge Planning/Care Management CM Discharge Assessment Start: 10/06/24 09:29 Freq: Status: Active Protocol: Document 10/06/24 09:29 (Rec: 10/06/24 09:32 [id number]) Discharge Planning Assessment Assigned [employer] [facility] Jain DPOA/Assigned Designee Name marita Segovia Contact Information [phone] Advance Directives? No History Provided By Patient Prior Living Arrangements [facility] Facility Household Members significant other Facility Name Admitted From: [facility] Discharge Plan Home Review Status In Process Please Provide Date Initial DC 10/06/24 Assessment Was Performed Next Review Type Continued Stay Review
[2024-10-06] MEDS: AMLODIPINE 5 MG TABLET 2.5 MG PO (09:49)
[2024-10-06 10:35] LABS: Troponin I 0.085 ng/mL (0.01-0.034)
[2024-10-06] MEDS: METOPROLOL ER 25 MG TABLET PO ×2 (11:28→17:01)
[2024-10-06] MEDS: INSULIN LISPRO 100 UNIT/ML 3ML VIAL SUBCUT ×3 (12:15→20:23)
--- NOTE | 2024-10-06 14:50 | PM.PN.1 ---
Subjective Subjective Interval history: 69 F admitted with chest pain. TTE showed LVOT with gradient of 65. Overnight had multiple runs of SVT. Troponin now positive after. Discussed with cardiology. LOVT is likely causing her symptoms. Recommends holding stress testing today, treat BP and goal HR 55 with beta barrie. Patient feels much improved from last night, but did feel palpiations. Exam Vital Signs (past 8 hours): - 10/06/24 08:00 10/06/24 11:28 10/06/24 12:00 Temperature 97.8 F 97.8 F Pulse Rate 96 H 96 H 90 Respiratory Rate 16 18 Blood Pressure 172/69 H 150/56 H Pulse Oximetry 97 96 Oxygen Flow Rate 3 1 10/06/24 12:16 Temperature Pulse Rate 96 H Respiratory Rate Blood Pressure 150/56 H Pulse Oximetry Oxygen Flow Rate Oxygen Delivery Method Nasal Cannula Oxygen Flow Rate 1 Narrative Exam Narrative: General:? Patient is well developed and well nourished, in no distress at this time. HEENT:? Normocephalic, atraumatic, extraocular muscles intact, oral pharynx is clear and mucous membranes are moist. Neck: supple and symmetric, trachea is midline, no cervical adenopathy. Negative for JVD Chest:? Normal AP diameter and contour without kyphoscoliosis, no tachypnea, equal chest rise bilaterally. Lungs:? CTA b/l no wheezing rhonchi or rales. Cardio:?RRR no m/r/g. Abdomen: S NT ND. No CVA tenderness. Musculoskeletal:? Muscle strength and tone are equal within normal limits, no deformity. Extremities: Trace bilateral pitting edema, R slightly greater than L. No joint effusions. No cyanosis or clubbing. Skin:? Pale,? Warm to touch,dry and intact without rashes, ulcerations or petechiae.? Neuro:? Alert and orientated x3,? sensation to touch intact in all extremities, no gross deficits noted of cranial nerves. Psych:? Patient has a well-kept appearance, appropriate affect, mental status attitude thought context and judgment are appropriate for age. Objective ECG Impression: NSR, no acute ischemia today. Labs 10/06/24 02:58 10/06/24 02:58 Labs: Laboratory Results - last 24 hr 10/05/24 10/06/24 10/06/24 15:30 02:58 09:48 WBC 10.2 RBC 3.04 L Hgb 7.0 L Hct 23.8 L MCV 78.3 L MCH 23.2 L MCHC 29.6 L RDW 18.8 H Plt Count 234 Neut % (Auto) 73.2 Lymph % (Auto) 11.9 L [place] % (Auto) 12.4 Eos % (Auto) 1.5 L Baso % (Auto) 1.0 Neut # (Auto) 7500 H Lymph # (Auto) 1200 [place] # (Auto) 1300 H Eos # (Auto) 200 Baso # (Auto) 100 Sodium 136 L Potassium 4.3 Chloride 102 Carbon Dioxide 30 BUN 20 H Creatinine 1.22 H Estimated GFR 47 L BUN/Creatinine Ratio 16.4 Glucose 148 H Hemoglobin A1c 6.9 H Calcium 8.5 Magnesium 1.9 Troponin I 0.014 0.083 H 0.085 H Triglycerides 96 Cholesterol 87 L LDL Cholesterol, Calc 35 HDL Cholesterol 33 L TSH 2.14 PFSH Medical History Major depressive disorder, single episode, mild Macular degeneration Asthma (~2014) Headache Vertigo Hearing loss Cataracts, bilateral Colon polyps (~2017) Kidney atrophy Anemia, chronic disease 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, without long-term current use of insulin Former smoker Hyperlipidemia Unsteady gait when walking Peripheral vascular disease (~2017) Hydrocephalus Carotid artery stenosis Resistant hypertension Surgical History Anesthesia History of brain shunt (~1999) History of tubal ligation (~1979) Family History Father Cancer Hyperlipidemia Hypertension Stroke Mother History of heart disease Hyperlipidemia Hypertension Brother History of hip replacement Hyperlipidemia Brother History of heart attack Social History household members: significant other Smoking Status: Former smoker alcohol intake: current Assessment & Plan Assessment & Plan narrative: 1. Chest pain, severe, improved, present on admission. - HEART score 5-6, intermediate risk. concerning for cardiac etiology given history. EKG without ischemic changes. TTE without wall motion abnormalities but does have LVOT. - troponin elevated after run of SVT overnight. Difficult to tell if this was afib on tele, now back in sinus - continue metoprolol, gave 25 mg this AM, will increase to 50 mg BID. Titrate to ideal HR of 55. 2. Possible acute on chronic heart failure, diastolic with acute respiratory failure with hypoxia. - 40 mg furosemide given in ER - does not appear vastly volume overloaded on exam on admission, will continue home torsemide tomorrow rather than further diuresis at this time. - TTE with normal EF, LVOT with high gradient. - discussed with cardiology, recommends aggressive beta blockade with goal HR of 55 given LVOT with high gradient and aggressive BP control. If troponins downtrend and improved HR and BP can perform stress portion of nuclear stress tomorrow. 3. HTN - continue home amlodipine, torsemide for now (depending on need for additional diursesis), clonidine per PCP note should be prn only and will hold at this time. 4. HLD - continue home statin 5. PVD - continue home statin, plavix 6. Obesity - The patient is at much higher risk for medical and surgical complications because of their obesity. This increases the difficulty and complexity of medical and surgical interventions and increases the chances of poor outcomes such as morbidity and mortality. 7. Hydrocephalus s/p INDUSTRIAL METHODS CONSULTANT Shunt - stable 8. DM2 - carb consistent diet - Due for ozempic 10/05 will hold while in the hospital - RIKI - A1c with good control at 6.9%. 9. CKD - cr stable at 1.1 from outpatient labs, monitor daily with bmp with diuresis. 1.22 today. 10. Chronic anemia - dipped to Hg of 7, outpatient values around 7-9, asymptomatic today will continue to monitor. 11. Myocardial injury - troponin uptrending to 0.085 after run of SVT overnight, discussed with cardiology, aggressive beta barrie and trend troponins until downtrending. Code: Full, surrogate is patient's spouse DVT: Lovenox daily I have utilized all available immediate resources to obtain, update, or review the patient's current medications. Dispo: patient admitted under observation status, possible discharge home tomorrow pending stress testing and medication management. Additional history obtained via discussions with the supervisor conditioning yard today. These discussions contributed to the creation of the above assessment and plan. I have reviewed patient's presenting documentation, labs, and imaging personally. Time-Based Coding :: [TOTAL MINUTES] spent with patient and on the chart (including review of chart, obtaining history, exam, reviewing outside data, placing orders, documenting exam and treatment plan, and counseling patient) on [DATE]. Quality VTE Deep Vein Thrombosis/Pulmonary Embolism Present on Admission: No
[2024-10-06 16:57] LABS: Troponin I 0.068 ng/mL (0.01-0.034)
[2024-10-06 18:13] LABS: Alanine Aminotransferase 19 IU/L (<35)
--- NOTE | 2024-10-06 18:38 | PC.NURSE ---
Addendum entered by Natty Cuadra R.N. 10/06/24 18:47: At start of shift pt stated that she had a headache and that Tylenol we gave was not touching it, pt requested same med she got in the night which was ativan, pt was given ativan am and headache resolved quickly. NOW, Pt states that she is having another pounding headache and would like more ativan. Rn gave her another dose and will reassess if headache is resolving. Original Note: about 1820 pt called to get up to commode, not able to go, RN helped pt back in bed. NC 2L 97%, vitals stable, pt said she wanted a breathing treatment, RN called RT will be up shortly
[2024-10-06 18:45] LABS: Hepatitis B Surface Antigen NEGATIVE s/c (NEGATIVE)
[2024-10-06 19:02] LABS: HIV 1 & 2 Ab/Ag 4th Gen Combo NEGATIVE (NEGATIVE); Hep C Virus Ab w/Reflex Quant NEGATIVE s/c (NEGATIVE)
[2024-10-06] MEDS: ALBUTEROL 2.5 MG/3 ML NEB (ADULT) INH (19:02)
[2024-10-06] MEDS: METOPROLOL ER 25 MG TABLET 50 MG PO (20:25)
[2024-10-06] MEDS: OXYCODONE/ACETAMINOPHEN 5/325 TABLET 2 TAB PO (21:40)
[2024-10-07] VITALS (25 sets, daily range): BP systolic 127–169; BP diastolic 49–80; PULSE 69–100; RESP 12–69; TEMP 35.7–36.9; O2SAT 84–98
[2024-10-07] MEDS: LORazepam 1 MG TABLET PO (03:31)
[2024-10-07] MEDS: OXYCODONE/ACETAMINOPHEN 5/325 TABLET 2 TAB PO ×2 (03:31→09:01)
[2024-10-07] MEDS: SODIUM CHLORIDE 0.9% FLUSH 10 ML IV ×4 (03:34→21:51)
[2024-10-07] MEDS: ONDANSETRON 4 MG/2 ML INJ IV ×2 (03:34→16:43)
[2024-10-07 05:31] LABS: Add Manual Diff / Slide Review NO; Basophils Absolute Auto 100 /uL (0-100); Eosinophils Absolute Auto 300 /uL (0-450); Eosinophils Percent Auto 2.6 % (2-4); Hematocrit 23.8 % (36-46); Lymphocytes Absolute Auto 1200 /uL (1100-4500); Lymphocytes Percent Auto 9.3 % (25-40); Mean Corpuscular HGB Conc 28.8 % (30-36); Mean Corpuscular Hemoglobin 23.1 PG (26-34); Mean Corpuscular Volume 80.2 fL (80-100); Monocytes Absolute Auto 1300 /uL (0-900); Monocytes Percent Auto 10.2 % (3-14); Neutrophils Absolute Auto 9600 /uL (1500-7000); Neutrophils Percent Auto 76.9 % (50-75); Platelet Count 245 X10^3/uL (150-400); Red Blood Cell Count 2.96 X10^6/uL (4.0-5.2); Red Cell Distribution Width 19.4 % (11.6-14.8); White Blood Cell Count 12.4 X10^3/uL (4.5-11.0)
[2024-10-07 05:43] LABS: BUN Creatinine Ratio 21.7 (6-22); Blood Urea Nitrogen 28 mg/dL (7-17); Calcium 8.7 mg/dL (8.4-10.2); Carbon Dioxide 32 mmol/L (22-32); Chloride 100 mmol/L (98-107); Estimated Glomerular Filt Rate 44 mL/min (>60); Glucose 143 mg/dL (80-110); HEMOLYSIS < 15 (0-50); Potassium 4.3 mmol/L (3.4-5.1); Sodium 136 mmol/L (137-145)
[2024-10-07 05:51] LABS: Hemoglobin 6.8 g/dL (12.0-16.0)
[2024-10-07] MEDS: METOPROLOL ER 50 MG TABLET 100 MG PO ×2 (09:01→22:11)
[2024-10-07] MEDS: methocarbamoL 500 MG TABLET PO (09:02)
[2024-10-07] MEDS: AMLODIPINE 5 MG TABLET 2.5 MG PO (09:21)
[2024-10-07] MEDS: lisinopriL 20 MG TABLET 40 MG PO (09:25)
[2024-10-07] MEDS: ENOXAPARIN 40 MG/0.4 ML SYRINGE SUBCUT (09:25)
[2024-10-07] MEDS: TORSEMIDE 10 MG TABLET PO (09:26)
[2024-10-07] MEDS: polyethylene glycoL 3350 17 GM POWD.PACK PO (11:42)
[2024-10-07 14:56] LABS: Allen Test for ABG Passed? Positive; Base Excess ABG 3.8 mmol/L (-2-3); Delivery System Cannula; HCO3 ABG 31 mmol/L (23-27); Oxygen Saturation ABG 85 % (95-100); PCO2 ABG 62.6 mmHg (35-45); PO2 ABG 56 mmHg (80-100); TCO2 ABG 32 mmol/L (23-27); pH ABG 7.31 (7.35-7.45)
--- NOTE | 2024-10-07 15:09 | PM.PN.1 ---
Subjective Subjective Interval history: Patient appeared ill this morning, complained of low back pain. Hg was 6.8, was given 1U PRBC transfusion. She reports EGD a long time ago, recent colonoscopy as she gets them every 3 years for polyps. She denies melena or BRBPR, has been constipated today. She became more lethargic this afternoon, worsening shortness of breath over the day, PCO2 was 62.6 with a pH of 7.306. She was ordered for BiPAP, transferred to the ICU. She did not tolerate attempts at bipap. She had minimal response to narcan, but did wake up quite a bit with pain after. She reported it felt like when her QUALITY CONTROL TECH RAW MATERIALS shunt malfunctioned before. CT head was unremarkable, as was Shunt series radiographs. She was given pain medication again IV to help her tolerate imaging procedures this evening. Exam Vital Signs (past 8 hours): - 10/07/24 08:00 10/07/24 08:00 10/07/24 09:01 Temperature 97.8 F Pulse Rate 85 86 Respiratory Rate 18 Blood Pressure 162/51 H 169/67 H Pulse Oximetry 93 Oxygen Delivery Method Nasal Cannula Oxygen Flow Rate 2 10/07/24 09:05 10/07/24 09:23 10/07/24 09:25 Temperature 98.5 F 98.1 F Pulse Rate 94 H 82 Respiratory Rate 20 18 Blood Pressure 169/67 H 155/58 H 169/77 H Pulse Oximetry Oxygen Delivery Method Oxygen Flow Rate 10/07/24 10:00 10/07/24 12:00 10/07/24 12:06 Temperature 98.1 F 98.1 F Pulse Rate 71 69 69 Respiratory Rate 69 H 14 Blood Pressure 128/54 L 128/54 L Pulse Oximetry 96 Oxygen Delivery Method Oxygen Flow Rate 2 Fraction of Inspired Oxygen 28 SaO2/FiO2 Ratio 346 Oxygen Delivery Method Nasal Cannula Oxygen Flow Rate 2 Narrative Exam Narrative: General:? Patient is well developed and well nourished, confused, lethargic Lungs:?bibasilar crackles, slight with expiratory wheezing. Cardio:?RRR no m/r/g. Abdomen: S NT ND. Extremities: Trace bilateral pitting edema, R slightly greater than L. No joint effusions. No cyanosis or clubbing. Skin:? Pale,? Warm to touch,dry and intact without rashes, ulcerations or petechiae.? Neuro:? lethargic and confused Objective Labs 10/07/24 16:04 10/07/24 16:04 Labs: Laboratory Results - last 24 hr 10/06/24 10/06/24 10/07/24 16:10 17:47 04:38 WBC 12.4 H RBC 2.96 L Hgb 6.8 L* Hct 23.8 L MCV 80.2 MCH 23.1 L MCHC 28.8 L RDW 19.4 H Plt Count 245 Neut % (Auto) 76.9 H Lymph % (Auto) 9.3 L [place] % (Auto) 10.2 Eos % (Auto) 2.6 Baso % (Auto) 1.0 Neut # (Auto) 9600 H Lymph # (Auto) 1200 [place] # (Auto) 1300 H Eos # (Auto) 300 Baso # (Auto) 100 ABG pH ABG pCO2 ABG pO2 ABG HCO3 ABG Total CO2 ABG O2 Saturation ABG Base Excess Richi Test O2 Delivery Device FiO2 % Sodium 136 L Potassium 4.3 Chloride 100 Carbon Dioxide 32 BUN 28 H Creatinine 1.29 H Estimated GFR 44 L BUN/Creatinine Ratio 21.7 Glucose 143 H Calcium 8.7 Magnesium 2.0 ALT 19 Troponin I 0.068 H Hep Bs Antigen Negative Hepatitis C Antibody Negative HIV 1&2 Ab/P24 Ag 4thGn Negative Blood Type Antibody Screen Crossmatch 10/07/24 10/07/24 07:11 14:52 WBC RBC Hgb Hct MCV MCH MCHC RDW Plt Count Neut % (Auto) Lymph % (Auto) Frontier % (Auto) Eos % (Auto) Baso % (Auto) Neut # (Auto) Lymph # (Auto) Frontier # (Auto) Eos # (Auto) Baso # (Auto) ABG pH 7.31 L ABG pCO2 62.6 H* ABG pO2 56 L ABG HCO3 31 H ABG Total CO2 32 H ABG O2 Saturation 85 L* ABG Base Excess 3.8 H Richi Test Positive O2 Delivery Device Cannula FiO2 % 24 % Sodium Potassium Chloride Carbon Dioxide BUN Creatinine Estimated GFR BUN/Creatinine Ratio Glucose Calcium Magnesium ALT Troponin I Hep Bs Antigen Hepatitis C Antibody HIV 1&2 Ab/P24 Ag 4thGn Blood Type O Negative Antibody Screen Negative Crossmatch See Detail [facility] Medical History Major depressive disorder, single episode, mild Macular degeneration Asthma (~2014) Headache Vertigo Hearing loss Cataracts, bilateral Colon polyps (~2017) Kidney atrophy Anemia, chronic disease 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, without long-term current use of insulin Former smoker Hyperlipidemia Unsteady gait when walking Peripheral vascular disease (~2017) Hydrocephalus Carotid artery stenosis Resistant hypertension Surgical History Anesthesia History of brain shunt (~1999) History of tubal ligation (~1979) Family History Father Cancer Hyperlipidemia Hypertension Stroke Mother History of heart disease Hyperlipidemia Hypertension Brother History of hip replacement Hyperlipidemia Brother History of heart attack Social History household members: significant other Smoking Status: Former smoker alcohol intake: current Assessment & Plan Assessment & Plan narrative: 1. Possible acute on chronic heart failure, diastolic, with acute respiratory failure with hypoxia. - 40 mg furosemide given in ER, have been aurea furosemide. With acute decompensation today will trial additional diuresis today with another 40 mg IV furosemide. - TTE with normal EF, LVOT with high gradient. - discussed with cardiology previously, recommends aggressive beta blockade with goal HR of 55 given LVOT with high gradient and aggressive BP control. Troponins have since downtrended. They were again lower this afternoon and were likely elevated in response to her tachyarrythmia. 2. Acute metabolic encephalopathy vs toxic encephalopathy. - unclear reason for encephalopathy. PCO2 is only 62.5, and pH 7.3. While technically a respiratory acidosis she has signs of chronic CO2 retention with a chronically elevated bicarb around 30. - discussed with tele-rim roller setter this afternoon, agreed with workup for shunt evaluation, suspects either medication induced encephalopathy, anemia, or perhaps undeclared infectious etiology but given lack of current fever - consider narcan infusion if worsening encephalopathy 3. Chest pain, severe, improved, present on admission. - HEART score 5-6, intermediate risk. concerning for cardiac etiology given history. EKG without ischemic changes. TTE without wall motion abnormalities but does have LVOT. - troponin elevated after run of SVT overnight. Difficult to tell if this was afib on tele, now back in sinus - continue metoprolol, now increased to 100 mg BID with improvement in rate. Titrate to ideal HR of 55 per cardiology recommendations. - patient did have her resting stress test portion a few days ago. The last two days have held stress portion given initial troponin bump on 10/06 and then anemia requiring transfusion on 10/06. 3. Possible COPD exacerbation - was given a dose of solumedrol with mild wheezing noted during acute decompensation today. Consider treatment with prednisone depending on course. 3. HTN - continue home amlodipine, torsemide (consider change to furosemide if more diuresis is needed), clonidine per PCP note should be prn only and will continue to hold at this time. 4. HLD - continue home statin 5. PVD - continue home statin, plavix 6. Obesity - The patient is at much higher risk for medical and surgical complications because of their obesity. This increases the difficulty and complexity of medical and surgical interventions and increases the chances of poor outcomes such as morbidity and mortality. 7. Hydrocephalus s/p QUALITY CONTROL TECH RAW MATERIALS Shunt - stable, did evaluate with CT head today and shunt series which were unremarkable. 8. DM2 - carb consistent diet - Due for ozempic 10/05 will hold while in the hospital - RIKI - A1c with good control at 6.9%. 9. VANESA on CKD - cr stable at 1.1 from outpatient labs, monitor daily with bmp with diuresis. Jumped to 1.7 this afternoon, unclear etiology possibly from anemia. 10. Acute on chronic anemia - dipped to Hg of 6.8 this AM, outpatient values around 7-9. Transfused 1U PRBC with improvement to 8.4 this afternoon on transfer to ICU labs. 11. Myocardial injury - troponin uptrending to 0.085 after run of SVT overnight, discussed with cardiology, aggressive beta barrie as above and troponins downtrended. 12. Supra-ventricular tachycardia - unclear if afib due to rate, occurrred overnight, could not capture on EKG. improved with beta barrie with no events today. Code: Full, surrogate is patient's spouse DVT: Lovenox daily I have utilized all available immediate resources to obtain, update, or review the patient's current medications. Dispo: patient admitted under observation status, possible discharge home tomorrow pending stress testing and medication management. Additional history obtained via discussions with the steersman today. These discussions contributed to the creation of the above assessment and plan. I have reviewed patient's presenting documentation, labs, and imaging personally. I spent 45 minutes providing critical care management this patient. This excludes time spent in performing separately billed procedures. Time-Based Coding :: [TOTAL MINUTES] spent with patient and on the chart (including review of chart, obtaining history, exam, reviewing outside data, placing orders, documenting exam and treatment plan, and counseling patient) on [DATE]. Quality VTE Deep Vein Thrombosis/Pulmonary Embolism Present on Admission: No
--- NOTE | 2024-10-07 15:12 | PC.NURSE ---
Day shift: Pt notably more sedated today. Arousable to loud voice, but patient notably more weak today. Yesterday she was able to be OOB with SBA + FWW, this afternoon, too weak to get out of bed. Notified MD Islas of patient's notable decline. RR 20-25. ABGs checked - patient found to be hypoxic + high CO2. RT started BiPAP and this RN gave report to Gregory Peres, HIDE COOKING OPERATOR. Patient transferred to the ICU at 1500.
[2024-10-07] MEDS: NALOXONE 0.4 MG/ML VIAL 0.2 MG IV (15:23)
[2024-10-07] MEDS: PANTOPRAZOLE 40 MG VIAL IV ×2 (15:45→21:49)
[2024-10-07] MEDS: FUROSEMIDE 40 MG/4 ML VIAL IV (15:45)
[2024-10-07] MEDS: methylPREDNISolone 125 MG/2 ML VIAL IV (15:45)
[2024-10-07] MEDS: LIDOCAINE 5% PATCH 1 EACH TOP (15:51)
[2024-10-07 16:19] LABS: Hematocrit 28.5 % (36-46); Hemoglobin 8.4 g/dL (12.0-16.0)
--- NOTE | 2024-10-07 16:25 | DI.CT.S_ITS ---
PROCEDURE: CT HEAD/BRAIN WO CON INDICATIONS: poss. ROTARY SWAGING MACHINE OPERATOR shunt malfunction, rule out hemorrhage TECHNIQUE: Noncontrast 4.5 mm thick angled axial sections acquired from the foramen magnum to the vertex, with coronal and sagittal reformats. For radiation dose reduction, the following was used: automated exposure control, adjustment of mA and/or kV according to patient size. COMPARISON: [facility], CT, CT HEAD/BRAIN WO CON, 10/01/2024, 12:04. FINDINGS: Image quality: Diagnostic. CSF spaces: Basal cisterns are patent. No extra-axial fluid collections. Hyperdense material along the right cerebral convexity. Left-sided ventriculostomy catheter tubing terminates in the left ventricle. The ventricles are grossly stable in size. Brain: No intracranial bleeds or masses. There is cerebral volume loss for age, with resultant ventricular and sulcal prominence. Small lacunar infarct in the right caudate head and body, stable. There are periventricular and deep white matter chronic small vessel ischemic changes. There is intracranial internal carotid artery atherosclerosis. Skull and face: Right frontal laurence hole. Calvarial defects in the bilateral parietal regions. No acute soft tissue abnormality. Sinuses: Visualized sinuses and mastoids are clear. IMPRESSION: No acute hemorrhage. No significant change in ventricular size compared to recent prior exam. Left ventricular shunt tubing remains in stable position and appears intact. Dictated by: Laisha Salazar M.D. on 10/07/2024 at 19:42 Approved by: Laisha Salazar M.D. on 10/07/2024 at 19:47
--- NOTE | 2024-10-07 16:25 | PC.NURSE ---
Addendum entered by Gregory Rodriguez R.N. 10/07/24 18:23: 1645 - Patient transported to CT and Xray via bed. Per Dr Islas, administered Dilaudid, Ativan, and Zofran in order to complete scans. Patient drowsy and somnolent throughout transport and scans. Returned to room, placed on 4L NC at 98%, other vitals stable. Patient continues to sleep, able to rouse when repeatedly stimulated. Nuero status remains unchanged when awake. Family updated, provider made aware, continuing to monitor while awaiting new orders. Original Note: 1520 - Assumed care of patient. Patient restless and anxious. Narcan administered per Dr Islas. RT and Dr Islas at bedside, BiPAP started, patient did not tolerate and became extremely agitated. Per Dr Islas, okay to hold off on BiPAP. Patient moved to room 231 at roughly 1600. Vitals currently stable, see EMAR, awaiting new orders and continuing to monitor.
--- NOTE | 2024-10-07 16:28 | DI.RAD.S_ITS ---
PROCEDURE: XR SKULL<4V INDICATIONS: SHUNT SERIES AP LATERAL TECHNIQUE: Single view(s) of the skull acquired. COMPARISON: [facility], CR, XR SKULL<4V, 10/01/2024, 11:34. FINDINGS: Bones: No fractures. No suspicious bony lesions. Visualized sinuses appear clear. Soft tissues: No soft tissue calcifications. No suspicious soft tissue densities. Intact shunt tubing. Overlying oxygen tubing. IMPRESSION: Intact shunt tubing. Dictated by: Laisha Salazar M.D. on 10/07/2024 at 19:56 Approved by: Laisha Salazar M.D. on 10/07/2024 at 19:57
--- NOTE | 2024-10-07 16:29 | DI.RAD.S_ITS ---
PROCEDURE: XR CHEST 1V INDICATIONS: SHUNT SERIES AP LATERAL TECHNIQUE: One view of the chest was acquired. COMPARISON: [facility], CR, XR CHEST 1V, 10/05/2024, 7:26. FINDINGS: Surgical changes and devices: Shunt tubing courses from the left neck through the left chest. No discontinuities. Overlying monitoring wires. Lungs and pleura: Low lung volumes with diffuse interstitial thickening. No pleural effusion or pneumothorax. Mediastinum: Mediastinal contours appear normal. Heart size is normal. Bones and chest wall: No suspicious bony lesions. Overlying soft tissues appear unremarkable. IMPRESSION: Intact left-sided shunt tubing. Dictated by: Laisha Salazar M.D. on 10/07/2024 at 19:55 Approved by: Laisha Salazar M.D. on 10/07/2024 at 19:56
--- NOTE | 2024-10-07 16:29 | DI.RAD.S_ITS ---
PROCEDURE: XR ABDOMEN 1V INDICATIONS: SHUNT SERIES AP LATERAL TECHNIQUE: One view of the abdomen acquired. COMPARISON: None. FINDINGS: Surgical changes and devices: Shunt tubing courses from the left chest into the left abdomen and subsequently in the left pelvis. There is no discontinuity or coiling. Bowel: Bowel gas pattern is normal. Soft tissues: No suspicious abdominal calcifications. Visualized solid organ contours appear normal in size. Bones: No suspicious bony lesions. IMPRESSION: Normal shunt position. No evidence of bowel obstruction. Dictated by: Laisha Salazar M.D. on 10/07/2024 at 19:51 Approved by: Laisha Salazar M.D. on 10/07/2024 at 19:54
[2024-10-07] MEDS: LORazepam 2 MG/ML INJ 1 MG IV (16:43)
[2024-10-07] MEDS: HYDROMORPHONE 1 MG INJ IV (16:44)
--- NOTE | 2024-10-07 17:19 | RT ---
Tried putting patient on bipap secondary to ABG showing a high Co2 and low po2. Patient did not tolerate bipap at all and was immediately taken off. Pt is currently on a 4lpm NC.
[2024-10-07 17:20] LABS: BUN Creatinine Ratio 18.2 (6-22); Blood Urea Nitrogen 31 mg/dL (7-17); Calcium 8.7 mg/dL (8.4-10.2); Carbon Dioxide 28 mmol/L (22-32); Chloride 100 mmol/L (98-107); Estimated Glomerular Filt Rate 32 mL/min (>60); Glucose 124 mg/dL (80-110); HEMOLYSIS < 15 (0-50); Potassium 4.8 mmol/L (3.4-5.1); Sodium 135 mmol/L (137-145)
[2024-10-07 17:30] LABS: Troponin I 0.049 ng/mL (0.01-0.034)
[2024-10-07] MEDS: SENNOSIDES 8.6 MG TABLET 17.2 MG PO (22:11)
[2024-10-07] MEDS: BACLOFEN 10 MG TABLET 5 MG PO (22:16)
[2024-10-07] MEDS: BISACODYL 10 MG SUPP PR (22:17)
[2024-10-08] VITALS (32 sets, daily range): BP systolic 110–147; BP diastolic 53–68; PULSE 63–82; RESP 13–37; TEMP 35.9–36.9; O2SAT 86–98
[2024-10-08 05:51] LABS: Add Manual Diff / Slide Review NO; Basophils Absolute Auto 0 /uL (0-100); Basophils Percent Auto 0.1 % (0-2); Eosinophils Absolute Auto 0 /uL (0-450); Hematocrit 29.2 % (36-46); Hemoglobin 8.6 g/dL (12.0-16.0); Lymphocytes Absolute Auto 500 /uL (1100-4500); Lymphocytes Percent Auto 4.6 % (25-40); Mean Corpuscular HGB Conc 29.4 % (30-36); Mean Corpuscular Hemoglobin 23.9 PG (26-34); Monocytes Absolute Auto 200 /uL (0-900); Monocytes Percent Auto 2.1 % (3-14); Neutrophils Absolute Auto 10800 /uL (1500-7000); Neutrophils Percent Auto 93.2 % (50-75); Platelet Count 269 X10^3/uL (150-400); Red Blood Cell Count 3.61 X10^6/uL (4.0-5.2); White Blood Cell Count 11.6 X10^3/uL (4.5-11.0)
[2024-10-08 05:55] LABS: BUN Creatinine Ratio 20.9 (6-22); Blood Urea Nitrogen 43 mg/dL (7-17); Carbon Dioxide 31 mmol/L (22-32); Chloride 98 mmol/L (98-107); Estimated Glomerular Filt Rate 25 mL/min (>60); Glucose 261 mg/dL (80-110); HEMOLYSIS < 15 (0-50); Magnesium 2.2 mg/dL (1.6-2.3); Sodium 136 mmol/L (137-145)
[2024-10-08 06:03] LABS: Potassium 5.5 mmol/L (3.4-5.1)
--- NOTE | 2024-10-08 08:21 | PM.PN.1 ---
Subjective Subjective Interval history: Summary: ?Came in with chest pain, had resting portion 2 days ago but then overnight developed an SVT and trop leak from that. Echo with LVOT with high gradient. Cards recommended BP control and beta barrie. Was going to do stress today but Hg (normally 8 as outpt) was 6.8. Gave 1U PRBC. 10/07 gets very lethargic, ABG with PCO2 of 63 ph 7.3 moved to ICU, failed BIPAP trial. Slight improvement with narcan but severe back pain. She has a SCIENTIFIC EDITOR shunt so checked that and seemed fine on imaging. My thought is it's just MSK back pain and she got too many narcotics today. Not sure if she will be able to finish stress portion, though cards did not seem all that concerned it needed to finish given normal appearing echo other than her LVOT. S: She feels much better today. No CP or dyspnea. No nausea. Exam Vital Signs (past 8 hours): - 10/08/24 00:30 10/08/24 00:30 10/08/24 02:00 Temperature Pulse Rate 71 Respiratory Rate 13 Blood Pressure 129/60 Pulse Oximetry 97 Oxygen Delivery Method Nasal Cannula Oxygen Flow Rate 2 10/08/24 04:00 10/08/24 05:34 Temperature 97.4 F L Pulse Rate 67 Respiratory Rate 19 Blood Pressure 120/57 L Pulse Oximetry 95 Oxygen Delivery Method Nasal Cannula Oxygen Flow Rate 1.5 Fraction of Inspired Oxygen 28 SaO2/FiO2 Ratio 346 Oxygen Delivery Method Nasal Cannula Oxygen Flow Rate 1.5 Narrative Exam Narrative: NAD, alert and oriented. Fluent speech. Lungs are clear, normal rate and effort. Heart is regular, no murmur gallop or rub. Abdomen is soft, non distended. Extremities are free of edema. Objective Labs 10/08/24 04:50 10/08/24 13:54 Labs: Laboratory Results - last 24 hr 10/07/24 10/07/24 10/07/24 07:11 14:52 16:04 WBC RBC Hgb 8.4 L Hct 28.5 L MCV MCH MCHC RDW Plt Count Neut % (Auto) Lymph % (Auto) [place] % (Auto) Eos % (Auto) Baso % (Auto) Neut # (Auto) Lymph # (Auto) [place] # (Auto) Eos # (Auto) Baso # (Auto) ABG pH 7.31 L ABG pCO2 62.6 H* ABG pO2 56 L ABG HCO3 31 H ABG Total CO2 32 H ABG O2 Saturation 85 L* ABG Base Excess 3.8 H Richi Test Positive O2 Delivery Device Cannula FiO2 % 24 % Sodium 135 L Potassium 4.8 Chloride 100 Carbon Dioxide 28 BUN 31 H Creatinine 1.70 H Estimated GFR 32 L BUN/Creatinine Ratio 18.2 Glucose 124 H Calcium 8.7 Magnesium 2.0 Troponin I 0.049 H Blood Type O Negative Antibody Screen Negative Crossmatch See Detail 10/08/24 04:50 WBC 11.6 H RBC 3.61 L Hgb 8.6 L Hct 29.2 L MCV 81.0 MCH 23.9 L MCHC 29.4 L RDW 19.0 H Plt Count 269 Neut % (Auto) 93.2 H Lymph % (Auto) 4.6 L [place] % (Auto) 2.1 L Eos % (Auto) 0.0 L Baso % (Auto) 0.1 Neut # (Auto) 14610 H Lymph # (Auto) 500 L [place] # (Auto) 200 Eos # (Auto) 0 Baso # (Auto) 0 ABG pH ABG pCO2 ABG pO2 ABG HCO3 ABG Total CO2 ABG O2 Saturation ABG Base Excess Richi Test O2 Delivery Device FiO2 % Sodium 136 L Potassium 5.5 H Chloride 98 Carbon Dioxide 31 BUN 43 H Creatinine 2.06 H Estimated GFR 25 L BUN/Creatinine Ratio 20.9 Glucose 261 H D Calcium 9.0 Magnesium 2.2 Troponin I Blood Type Antibody Screen Crossmatch [facility] Medical History Major depressive disorder, single episode, mild Macular degeneration Asthma (~2014) Headache Vertigo Hearing loss Cataracts, bilateral Colon polyps (~2017) Kidney atrophy Anemia, chronic disease 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, without long-term current use of insulin Former smoker Hyperlipidemia Unsteady gait when walking Peripheral vascular disease (~2017) Hydrocephalus Carotid artery stenosis Resistant hypertension Surgical History Anesthesia History of brain shunt (~1999) History of tubal ligation (~1979) Family History Father Cancer Hyperlipidemia Hypertension Stroke Mother History of heart disease Hyperlipidemia Hypertension Brother History of hip replacement Hyperlipidemia Brother History of heart attack Social History household members: significant other Smoking Status: Former smoker alcohol intake: current Assessment & Plan Assessment & Plan narrative: 1. Possible acute on chronic heart failure, diastolic, with acute respiratory failure with hypoxia. UImproved. -was diruesed and increased Cr overnight. 2. Acute metabolic encephalopathy vs toxic encephalopathy. Resolved. - unclear reason for encephalopathy. PCO2 is only 62.5, and pH 7.3. While technically a respiratory acidosis she has signs of chronic CO2 retention with a chronically elevated bicarb around 30. 3. Chest pain, severe, improved, present on admission. Resolved. - HEART score 5-6, intermediate risk. Aborted stress test due to VANESA and hyperkalemia. 4. HTN, present on admission and stable. - continue home amlodipine, torsemide (consider change to furosemide if more diuresis is needed), clonidine per PCP note should be prn only and will continue to hold at this time. 4. HLD, stable. - continue home statin 5. PVD, stable. - continue home statin, plavix 6. Obesity, stable. - The patient is at much higher risk for medical and surgical complications because of their obesity. This increases the difficulty and complexity of medical and surgical interventions and increases the chances of poor outcomes such as morbidity and mortality. 7. SCIENTIFIC EDITOR Shunt, stable. - stable, did evaluate with CT head today and shunt series which were unremarkable. 8. DM2, stable. 9. VANESA on CKD - give fluid back today and follow Cr. 10. Hyperkalemia, new and active. 11. Acute on chronic anemia - dipped to Hg of 6.8 this AM, outpatient values around 7-9. Transfused 1U PRBC with improvement to 8.4 this afternoon on transfer to ICU labs. 12. Myocardial injury - troponin uptrending to 0.085 after run of SVT overnight, discussed with cardiology, aggressive beta barrie as above and troponins downtrended. 13. Supra-ventricular tachycardia - unclear if afib due to rate, occurrred overnight, could not capture on EKG. improved with beta barrie with no events today. PLAN: -gentle hydration and monitor HR, K, and renal function. -telemetry. -continue metoprolol. SUREKHA: 11/10 Code: Full, surrogate is patient's spouse DVT: Lovenox daily Time-Based Coding :: [TOTAL MINUTES] spent with patient and on the chart (including review of chart, obtaining history, exam, reviewing outside data, placing orders, documenting exam and treatment plan, and counseling patient) on [DATE]. Quality VTE Deep Vein Thrombosis/Pulmonary Embolism Present on Admission: No
[2024-10-08] MEDS: INSULIN LISPRO 100 UNIT/ML 3ML VIAL SUBCUT ×4 (08:32→21:27)
[2024-10-08] MEDS: METOPROLOL ER 50 MG TABLET 100 MG PO ×2 (08:33→21:28)
[2024-10-08] MEDS: AMLODIPINE 5 MG TABLET 2.5 MG PO (08:33)
[2024-10-08] MEDS: FERROUS SULFATE 325 MG TABLET PO (08:33)
[2024-10-08] MEDS: lisinopriL 20 MG TABLET 40 MG PO (08:34)
[2024-10-08] MEDS: ENOXAPARIN 40 MG/0.4 ML SYRINGE SUBCUT (08:35)
[2024-10-08] MEDS: PANTOPRAZOLE 40 MG VIAL IV ×2 (08:37→21:29)
[2024-10-08] MEDS: SODIUM CHLORIDE 0.9% FLUSH 10 ML IV ×2 (08:38→21:29)
--- NOTE | 2024-10-08 09:05 | DI.RAD.S_ITS ---
PROCEDURE: XR CHEST 1V INDICATIONS: dyspnea TECHNIQUE: One view of the chest was acquired. COMPARISON: [facility], CR, XR CHEST 1V, 10/07/2024, 16:54. FINDINGS: Surgical changes and devices: None. Lungs and pleura: Lungs are clear. No pleural effusions or pneumothorax. Mediastinum: Mediastinal contours appear normal. Heart size is mildly prominent. Bones and chest wall: No suspicious bony lesions. Overlying soft tissues appear unremarkable. IMPRESSION: No acute pulmonary process. Dictated by: Cassy Manrique M.D. on 10/08/2024 at 11:32 Approved by: Cassy Manrique M.D. on 10/08/2024 at 11:33
[2024-10-08] MEDS: SODIUM CHLORIDE 0.9% 250 ML 1000 ML IV ×2 (09:26→16:20)
[2024-10-08] MEDS: ACETAMINOPHEN 325 MG TABLET 650 MG PO ×2 (09:36→21:38)
--- NOTE | 2024-10-08 12:27 | PC.NURSE ---
Patient mentation significantly improved from yesterday. Alert to self, birthday, situation, and place. Patient states they do not remember anything prior to moving to the ICU. 2L NC at 96%, lungs clear, unlabored breathing. Ambulating to the bathroom and up in chair, one person assist. Per Dr Rai, continue to monitor with current orders.
[2024-10-08] MEDS: LIDOCAINE 5% PATCH 1 EACH TOP (13:53)
[2024-10-08 14:35] LABS: BUN Creatinine Ratio 29.3 (6-22); Blood Urea Nitrogen 56 mg/dL (7-17); Calcium 8.6 mg/dL (8.4-10.2); Carbon Dioxide 30 mmol/L (22-32); Chloride 98 mmol/L (98-107); Estimated Glomerular Filt Rate 28 mL/min (>60); Glucose 234 mg/dL (80-110); HEMOLYSIS < 15 (0-50); Sodium 135 mmol/L (137-145)
[2024-10-08 14:44] LABS: Potassium 5.5 mmol/L (3.4-5.1)
--- NOTE | 2024-10-08 14:57 | CM.DPC ---
DCP Cont: Per MD, pt remains on oximask and now down to 1.5LO2 and making improvements but not yet stable to discharge yet today. PT ordered and pending. SW met bedside with pt and Sig Other and SO's adult Dtr and explained role and pt confirms she lives with SO on the independent side of [facility] and typically does not use DME for ambulation but had been feeling weaker and was in the process of getting PT set up at [facility] with their in-house PT and pt was already cleared by Legal Writing Professor. Pt agreeable with working with PT as she states she hasn't been out of bed much and wants to keep her strength up. Pt does not anticipate any other needs at d/c and preference is home with SO and his Dtr states she can provide transport at d/c. Plan: SW to follow for PT eval to confirm safe return home with SO and in-house PT at [facility] and any further identified discharge planning needs. Rody Pichardo MSW
[2024-10-08] MEDS: SODIUM ZIRCONIUM CYCLOSILICATE 10 GM POWD.PACK PO (16:20)
[2024-10-08] MEDS: SENNOSIDES 8.6 MG TABLET 17.2 MG PO (21:29)
[2024-10-08] MEDS: LORazepam 1 MG TABLET PO (21:38)
[2024-10-09] VITALS (44 sets, daily range): BP systolic 133–212; BP diastolic 61–102; PULSE 56–78; RESP 15–49; TEMP 36.3–36.8; O2SAT 85–99
[2024-10-09] MEDS: ONDANSETRON 4 MG/2 ML INJ IV (02:33)
--- NOTE | 2024-10-09 03:24 | PC.NURSE ---
pt has been very restless; states she has been having bad dreams; lights on, pt up to bsc; back lotioned, gown changed, and hair braided; pt appears calmer; back to bed and covered w/ warm blankets; call light in reach
[2024-10-09] MEDS: ACETAMINOPHEN 325 MG TABLET 650 MG PO (05:08)
[2024-10-09 05:58] LABS: BUN Creatinine Ratio 35.8 (6-22); Blood Urea Nitrogen 59 mg/dL (7-17); Calcium 8.7 mg/dL (8.4-10.2); Carbon Dioxide 33 mmol/L (22-32); Chloride 99 mmol/L (98-107); Estimated Glomerular Filt Rate 33 mL/min (>60); Glucose 133 mg/dL (80-110); HEMOLYSIS < 15 (0-50); Potassium 4.7 mmol/L (3.4-5.1); Sodium 135 mmol/L (137-145)
--- NOTE | 2024-10-09 07:24 | P.PN_ITS ---
Subjective Subjective Interval history: Summary: ?Came in with chest pain, had resting portion 2 days ago but then overnight developed an SVT and trop leak from that. Echo with LVOT with high gradient. Cards recommended BP control and beta barrie. Was going to do stress today but Hg (normally 8 as outpt) was 6.8. Gave 1U PRBC. 10/07 gets very lethargic, ABG with PCO2 of 63 ph 7.3 moved to ICU, failed BIPAP trial. Slight improvement with narcan but severe back pain. She has a COMPUTER METHODS ANALYST shunt so checked that and seemed fine on imaging. My thought is it's just MSK back pain and she got too many narcotics today. Not sure if she will be able to finish stress portion, though cards did not seem all that concerned it needed to finish given normal appearing echo other than her LVOT. S: Mentally foggy. No chest pain or dyspnea. Some insomnia. Received Ativan overnight. Exam Vital Signs (past 8 hours): - 10/09/24 00:00 10/09/24 02:00 10/09/24 04:00 Temperature 98.2 F 97.7 F Pulse Rate 68 63 Respiratory Rate 18 19 Blood Pressure 138/65 133/61 Pulse Oximetry 96 96 Oxygen Delivery Method Nasal Cannula Oxygen Flow Rate 2 2 10/09/24 06:00 Temperature Pulse Rate Respiratory Rate Blood Pressure Pulse Oximetry Oxygen Delivery Method Nasal Cannula Oxygen Flow Rate Fraction of Inspired Oxygen 28 SaO2/FiO2 Ratio 328 Oxygen Delivery Method Nasal Cannula Oxygen Flow Rate 2 Narrative Exam Narrative: NAD, alert and oriented. Fluent speech. Lungs are clear, normal rate and effort. Heart is regular, no murmur gallop or rub. Abdomen is soft, non distended. Extremities are free of edema. 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, without long-term current use of insulin Former smoker Hyperlipidemia Unsteady gait when walking Peripheral vascular disease (~2017) Hydrocephalus Carotid artery stenosis Resistant hypertension Surgical History Anesthesia History of brain shunt (~1999) History of tubal ligation (~1979) Family History Father Cancer Hyperlipidemia Hypertension Stroke Mother History of heart disease Hyperlipidemia Hypertension Brother History of hip replacement Hyperlipidemia Brother History of heart attack Social History household members: significant other Smoking Status: Former smoker alcohol intake: current Assessment & Plan Assessment & Plan narrative: 1. Possible acute on chronic heart failure (LVOT), with acute respiratory failure with hypoxia. UImproved. -was diruesed and increased Cr overnight. 2. Acute metabolic encephalopathy vs toxic encephalopathy. Resolved. - unclear reason for encephalopathy. PCO2 is only 62.5, and pH 7.3. While technically a respiratory acidosis she has signs of chronic CO2 retention with a chronically elevated bicarb around 30. 3. Chest pain, severe, improved, present on admission. Resolved. - HEART score 5-6, intermediate risk. Aborted stress test due to VANESA and hyperkalemia. 4. HTN, present on admission and stable. - continue home amlodipine, torsemide (consider change to furosemide if more diuresis is needed), clonidine per PCP note should be prn only and will continue to hold at this time. 4. HLD, stable. - continue home statin 5. PVD, stable. - continue home statin, plavix 6. Obesity, stable. - The patient is at much higher risk for medical and surgical complications because of their obesity. This increases the difficulty and complexity of medical and surgical interventions and increases the chances of poor outcomes such as morbidity and mortality. 7. COMPUTER METHODS ANALYST Shunt, stable. - stable, did evaluate with CT head today and shunt series which were unremarkable. 8. DM2, stable. 9. VANESA on CKD, Improved. - give fluid back today and follow Cr. 10. Hyperkalemia, new and improved. 11. Acute on chronic anemia, improved. - dipped to Hg of 6.8 this AM, outpatient values around 7-9. Transfused 1U PRBC with improvement to 8.4 this afternoon on transfer to ICU labs. 12. Demand sichemia, active. - troponin uptrending to 0.085 after run of SVT overnight, discussed with cardiology, aggressive beta barrie as above and troponins downtrended. 13. Supra-ventricular tachycardia, resolved. - unclear if afib due to rate, occurrred overnight, could not capture on EKG. improved with beta barrie with no events today. PLAN: -cont Metoprolol 100 BID -telemetry. -continue metoprolol. -anticipate snf facility transition -we will discuss with her primary aircraft captain Friday, [facility]. -we will eliminate hydromorphone And Ativan from her JAN. -melatonin HS. -met with, and discussed issues with family. SUREKHA: 10/10 Code: Full, surrogate is patient's spouse DVT: Lovenox daily Time-Based Coding :: [TOTAL MINUTES] spent with patient and on the chart (including review of chart, obtaining history, exam, reviewing outside data, placing orders, documenting exam and treatment plan, and counseling patient) on [DATE]. Quality VTE Deep Vein Thrombosis/Pulmonary Embolism Present on Admission: No
[2024-10-09 07:41] LABS: Hemoglobin 9.2 g/dL (12.0-16.0); Mean Corpuscular HGB Conc 29.6 % (30-36); Mean Corpuscular Hemoglobin 23.9 PG (26-34); Mean Corpuscular Volume 80.9 fL (80-100); Platelet Count 268 X10^3/uL (150-400); Red Blood Cell Count 3.83 X10^6/uL (4.0-5.2); Red Cell Distribution Width 19.8 % (11.6-14.8); White Blood Cell Count 12.7 X10^3/uL (4.5-11.0)
[2024-10-09] MEDS: lisinopriL 20 MG TABLET 40 MG PO (08:21)
[2024-10-09] MEDS: AMLODIPINE 5 MG TABLET 2.5 MG PO (08:21)
[2024-10-09] MEDS: LIDOCAINE 5% PATCH 1 EACH TOP (08:22)
[2024-10-09] MEDS: polyethylene glycoL 3350 17 GM POWD.PACK PO (08:22)
[2024-10-09] MEDS: METOPROLOL ER 50 MG TABLET 100 MG PO ×2 (08:22→17:48)
[2024-10-09] MEDS: PANTOPRAZOLE 40 MG VIAL IV (08:22)
[2024-10-09] MEDS: FERROUS SULFATE 325 MG TABLET PO (08:22)
[2024-10-09] MEDS: ENOXAPARIN 40 MG/0.4 ML SYRINGE SUBCUT (08:22)
[2024-10-09] MEDS: SODIUM CHLORIDE 0.9% FLUSH 10 ML IV ×2 (08:29→22:59)
--- NOTE | 2024-10-09 10:40 | PT.IIE ---
Current Diagnoses Chest pain, unspecified (10/05/24) Surgical History (Last Reviewed 10/08/24 @ 08:22 by Richi Rai MD) Anesthesia History of brain shunt (~1999) History of tubal ligation (~1979) Medical History (Last Reviewed 10/08/24 @ 08:22 by Richi Rai MD) Anemia, chronic disease Asthma (~2014) Carotid artery stenosis Cataracts, bilateral CKD stage 3 secondary to diabetes Colon polyps (~2017) Former smoker Headache Hearing loss Hydrocephalus Hyperlipidemia Kidney atrophy Macular degeneration Major depressive disorder, single episode, mild Peripheral vascular disease (~2018) Resistant hypertension Type 2 diabetes mellitus with kidney complication, without long-term current use of insulin Unsteady gait when walking Vertigo Physical Therapy Inpatient Evaluation/Re-Eval M1 PT/OT-IP Prior Functional Status Start: 10/09/24 12:39 Freq: NEEDED Status: Active Protocol: Document 10/09/24 10:40 AB (Rec: 10/09/24 12:54 AB [id number]) Medical Review Prior Functional Status Medical History Reviewed Yes Communication able to make needs known; with some confusion and increase time to respond to questions and instructions Mobility and Gait family provided pt's PLOF and home set up: stated that pt is modified independent with all mobilities and ambulation without AD but has difficulty walking due to chronic back pain. Social History Household Members significant other Living Arrangements Custodial Facility Number of Stairs To Enter/Railing? pt lives at [facility] access to elevator to get to her floor Home Environment Standard Height Toilet,Walk in Shower,Built-In Shower Seat, Elevator Home Equipment Manual Wheelchair,Hand Held Shower,Grab Bars Near Toilet, Grab Bars In Shower Additional Social History Comment pt lives with [place] significant other but will not be able to assist pt; daughter stated that pt's SO has dx dementia and will not be able to assist pt M2 PT-IP Current Condition Start: 10/09/24 12:39 Freq: NEEDED Status: Active Protocol: Document 10/09/24 10:40 AB (Rec: 10/09/24 12:54 AB [id number]) Physical Therapy Current Condition Current Condition Evaluation Date 10/09/24 Treatment Diagnosis CHF; difficulty in walking Onset Date 10/05/24 M3 PT-IP Subjective Start: 10/09/24 12:39 Freq: NEEDED Status: Active Protocol: Document 10/09/24 10:40 AB (Rec: 10/09/24 12:54 AB [id number]) Subjective Physical Therapy Visit Type Type Initial Evaluation Visit Start Time 10:40 Visit Stop Time 11:10 Number of VOICE COACH Visits 0 Physical Therapy Visit Comments Patient Comments agreeable to do PT Therapy Pain Assessment Pain When Pain Assessed At Rest Pain Present Pain Present Pain Reported Location Back Scale Used high per pt; pain scale not stated Pain Behaviors Restlessness Pain Management Techniques Distraction,Modification of Treatment,Re-positioning, Timing of Activity with Medications M4 PT-IP Mobility and Gait Start: 10/09/24 12:39 Freq: NEEDED Status: Active Protocol: Document 10/09/24 10:40 AB (Rec: 10/09/24 12:54 [id number]) PT-Bed Mobility Assessment Supine to Sit Supine to Sit Standby Assistance Sit to Supine Sit to Supine Standby Assistance PT-Transfer Assessment Sit to and From Stand Sit to and from Stand Minimal Assistance,1 Person Assistance,Use of Upper Extremities Equipment Transfer Assistive Device Gait Belt,Front Wheeled Walker Orthotic/Prosthetic Devices or Brace: No Transfers Transfer Destination Toilet Transfer Technique ambulated Transfer Ability Level of Assist Minimal Assistance,1 Person Assistance,Use of Upper Extremities Comments Mobility Comments pt supine in bed. family in room and provided pt's PLOF and home set up. O2 sat at RA : 90-92%. nurse stated that goal is at least 88%. pt with confusion and delayed responses requiring max cues with repetitions of instructions. completed sit to stand from EOB min A and ambulated to EOB min A and cues. pt tends to run into things in room needing assist to maneuver FWW . pt sat on EOB. completed sit <>supine SBA. able to sit on EOB SBA. pt requested to use the toilet. sit to stand from EOB min A and ambulated to the toilet using FWW min A and max cues. able to maintain standing CGA while assisted with brief management . pt completed sit to stand from the toilet min A using grab bar. pt ambulated to the chair using FWW min A. positioned pt on the chair. O2 sat checked: 86%. cued for PLB and o2 sat increased to 87 -88% in ~ 20 sec. increased to 90% after a few more seconds and with PLB. call light and table placed next to pt. pt and family agreeable for pt to go to SNF if needed. rifle case repairer informed. Gait Assessment Gait Gait Assistance Required: Minimum Assistance,1 Person Assist Distance (Feet) 30 Able to Maintain Weight Bearing Status Yes During Gait Assistive Devices Assistive Device Gait Belt,Front Wheeled Walker Orthotic/Prosthetic Devices or Brace: No Gait Deviations General Gait Pattern Decreased Stride Length, Decreased Feet Clearance,Step- to Gait Factors Limiting Gait Function Factors Limiting Gait Function Decreased Activity Tolerance, Decreased Strength,Difficulty Following Directions,Limited Range of Motion,Pain,Poor Balance,Poor Safety Awareness PT-Balance Assessment Sitting Balance and Reactions Static Sitting Balance Ability Normal Dynamic Sitting Balance Ability Good Standing Balance and Reactions Static Standing Balance Ability Fair Dynamic Standing Balance Ability Fair Device Used FWW M5 PT-IP Objective Assessments Start: 10/09/24 12:39 Freq: NEEDED Status: Active Protocol: Document 10/09/24 10:40 AB (Rec: 10/09/24 12:54 AB [id number]) Orientation Orientation/Cognition Level of Alertness Alert Orientation Name Language Function Ability Hard of Hearing Safety Awareness Decreased Safety Awareness Memory Description Short Term Impaired Comments with confusion Gross Range of Motion Lower Extremity ROM Assessment Within Functional Limits Strength Lower Extremity Strength Assessment Within Functional Limits Muscle Tone Muscle Tone WNL Yes M6 PT-IP Treatment Start: 10/09/24 12:39 Freq: NEEDED Status: Active Protocol: Document 10/09/24 10:40 AB (Rec: 10/09/24 12:54 AB [id number]) Physical Therapy Treatment Education Education Provided Safety M7 PT-IP Assessment and Plan Start: 10/09/24 12:39 Freq: NEEDED Status: Active Protocol: Document 10/09/24 10:40 AB (Rec: 10/09/24 12:54 AB [id number]) PT Summary Assessment and Plan Potential Rehabilitation Potential Fair Status of Condition at Evaluation Evolving Summary Impairments Pain,ROM,Strength,Balance, Coordination,Sensation,Tone, Cognition,Bed Mobility, Transfers,Gait,Activity Tolerance Progress Towards Goals Slow Progress due to Medical Issues,Slow Progress due to Activity Tolerance Assessment Summary pt is a 69 y/o F with c/o chest pain and is admitted for CHF exacerbation. pt requiring min A with all mobilities and has decrease safety awareness needing max cues with all tasks. pt lives [facility] with her significant other but significant other will not be able to assist pt due to his own medical condition. pt needs 24/7 assist at this time and will benefit from SNF rehab. will continue to assess progress. Goals Bed Mobility Goal Independent Transfer Goal Independent,Front Wheeled Walker Gait Goal Independent,Front Wheel Walker Gait Distance 200 Days to Meet Goals 10 Frequency of Treatment Frequency Of Treatment Once a Day Treatment Plan Physical Therapy Treatment Plan Bed Mobility Training,Transfer Training,Gait Training, Therapeutic Exercise,Balance Retraining,Discharge Planning, Hot or Cold Pack,Neuromuscular Re-ed,Coordination Retraining Precautions Other Precautions O2 sat; falls Recommendations To Nursing Amount of Assist Needed 1 Person Assist Discharge Recommendations PT Discharge Recommendations Home with 24/7 Assist Available,Home Health,SNF Rehab,Home vs SNF Equipment Needed for Home Before FWW Discharge Transportation Needs at Discharge Private Vehicle,Wheelchair/ Cabulance
[2024-10-09] MEDS: OXYCODONE/ACETAMINOPHEN 5/325 TABLET 1 TAB PO ×3 (10:44→23:16)
[2024-10-09] MEDS: INSULIN LISPRO 100 UNIT/ML 3ML VIAL SUBCUT (12:12)
[2024-10-09] MEDS: methocarbamoL 500 MG TABLET PO ×2 (12:13→23:16)
--- NOTE | 2024-10-09 16:42 | CM.DPNOTE ---
DCP note SOLID WASTE TRUCK DRIVER reviewed EMR. Per RN, pt weaning oxygen down, improving well enough. Per PT, rec SNF placement. SOLID WASTE TRUCK DRIVER met with pt and family in room. Pt in agreement with SNF until pt can return back to [facility]. Gave family choice list. Per family EOD Friday, preferences are [facility] and [facility]. Referrals/PASRR needed P: anticipate SNF placement pending accepting facility. Referrals needed. CM team will continue to follow closely [facility]
[2024-10-09] MEDS: PANTOPRAZOLE DR 40 MG TABLET PO (21:01)
[2024-10-09] MEDS: SENNOSIDES 8.6 MG TABLET 17.2 MG PO (21:01)
[2024-10-09] MEDS: MELATONIN 3 MG TABLET PO (21:01)
[2024-10-09] MEDS: HYDRALAZINE 20 MG/ML VIAL 10 MG IV (22:59)
[2024-10-10] VITALS (44 sets, daily range): BP systolic 138–225; BP diastolic 65–95; PULSE 61–93; RESP 12–43; TEMP 36.4–36.8; O2SAT 93–100
[2024-10-10] MEDS: HYDRALAZINE 20 MG/ML VIAL 10 MG IV ×4 (03:56→23:21)
[2024-10-10] MEDS: SODIUM CHLORIDE 0.9% FLUSH 10 ML IV ×3 (03:58→21:33)
[2024-10-10] MEDS: BACLOFEN 10 MG TABLET 5 MG PO ×2 (04:24→19:06)
[2024-10-10 05:18] LABS: Hematocrit 28.6 % (36-46); Hemoglobin 8.6 g/dL (12.0-16.0); Mean Corpuscular Hemoglobin 24.1 PG (26-34); Mean Corpuscular Volume 80.3 fL (80-100); Platelet Count 269 X10^3/uL (150-400); Red Blood Cell Count 3.57 X10^6/uL (4.0-5.2); Red Cell Distribution Width 19.4 % (11.6-14.8); White Blood Cell Count 11.7 X10^3/uL (4.5-11.0)
[2024-10-10] MEDS: OXYCODONE/ACETAMINOPHEN 5/325 TABLET 1 TAB PO ×2 (05:18→14:26)
[2024-10-10 05:19] LABS: BUN Creatinine Ratio 35.5 (6-22); Blood Urea Nitrogen 39 mg/dL (7-17); Carbon Dioxide 33 mmol/L (22-32); Chloride 99 mmol/L (98-107); Estimated Glomerular Filt Rate 54 mL/min (>60); Glucose 154 mg/dL (80-110); HEMOLYSIS < 15 (0-50); Potassium 4.3 mmol/L (3.4-5.1); Sodium 136 mmol/L (137-145)
[2024-10-10] MEDS: ENOXAPARIN 40 MG/0.4 ML SYRINGE SUBCUT (08:47)
[2024-10-10] MEDS: AMLODIPINE 5 MG TABLET 2.5 MG PO (08:47)
[2024-10-10] MEDS: PANTOPRAZOLE DR 40 MG TABLET PO ×2 (08:47→21:32)
[2024-10-10] MEDS: FERROUS SULFATE 325 MG TABLET PO (08:48)
[2024-10-10] MEDS: METOPROLOL ER 50 MG TABLET 100 MG PO ×2 (08:48→21:32)
[2024-10-10] MEDS: polyethylene glycoL 3350 17 GM POWD.PACK PO (08:49)
[2024-10-10] MEDS: LIDOCAINE 5% PATCH 1 EACH TOP (08:49)
[2024-10-10] MEDS: lisinopriL 20 MG TABLET 40 MG PO (08:58)
--- NOTE | 2024-10-10 10:05 | PT-IP ANOTE ---
Attempted to see pt at 10:05 AM, per RN okay to hold today due to medical complications/possible pt transfer at some point.
--- NOTE | 2024-10-10 10:42 | PT-IP ANOTE ---
Pt discussed in rounds and to be transferring to another medical facility. recommends d/c PT. Pt is getting up with nsg.
--- NOTE | 2024-10-10 13:27 | PM.DS.1 ---
History of Present Illness History of Present Illness Chief complaint: Chest Pain Narrative: From H&P: This is a 69-year-old female with a past medical history of hypertension, hyperlipidemia, peripheral vascular disease, obesity, hydrocephalus with HOSTLER HELPER shunt placement in 2007, CKD, single functional kidney, and ? CHF who presents with chest pressure. Patient states starting last night she had severe chest pressure / ache. It was left sided, non-radiating. She would get palpitations and worse with movement. It has since subsided greatly, improved with nitro with EMS and a nitro patch placed in the ER. She denies diaphoresis, nausea, or vomiting. Denies recent fever, chills, nasal congestion, cough. She cannot lay flat due to her HOSTLER HELPER shunt at night, she has poor exercise tolerance at baseline due to her PVD. She has had 50 lb weight gain over the past two years. Over the past few months some lower extremity edema for which she was started on torsemide. Just saw Dr. Grissom skein washer locally, but no recent stress testing ordered. Her recent BP and leg swelling is actually been a bit improved after starting torsemide. In the ER, she was initially mildly hypertensive which did improve after 40 mg of furosemide was given. D-dimer was elevated, CTA chest was negative. Imaging showed possible cardiomegaly with likely pulmonary edema. There was mild leukocytosis with a WBC of 17.4, Cr 1.1 consistent with outpatient baseline per review of nephrology notes. Troponins were negative x2. Respiratory panel was negative as was a urinalysis. She was admitted for further evaluation of her chest discomfort. Discharge Providers Provider Date of admission: 10/05/24 10:33 Discharge Date: 10/10/24 Primary care physician: Yeni Casper DO Consults: 10/08/24 14:56 Consult to Physical Therapy Evaluate & Treat Comment: Physician Instructions: Evaluate and Treat Discharge provider: Richi Rai MD Summary Hospital Course Discharge Diagnosis: 1. Possible acute on chronic heart failure (LVOT), with acute respiratory failure with hypoxia. UImproved. -was diuresed and increased Cr. Improved with IVF. 2. Acute metabolic encephalopathy (concern for possible HOSTLER HELPER shunt dysfunction), Active. - unclear reason for encephalopathy. PCO2 is only 62.5, and pH 7.3. While technically a respiratory acidosis she has signs of chronic CO2 retention with a chronically elevated bicarb around 30. - family concerned for HOSTLER HELPER shunt dysfunction. 3. Chest pain, severe, improved, present on admission. Resolved. - HEART score 5-6, intermediate risk. Aborted stress test due to VANESA and hyperkalemia. ECHO: LVOT. Stress test aborted due to elevated creatinine and hyperkalemia on the 2nd day of a 2 day study. 4. HTN, present on admission and stable. - continued home amlodipine, torsemide (consider change to furosemide if more diuresis is needed), clonidine per PCP note should be prn only and will continue to hold at this time. 4. HLD, stable. - continue home statin 5. PVD, stable. - continue home statin, plavix 6. Obesity, stable. - The patient is at much higher risk for medical and surgical complications because of their obesity. This increases the difficulty and complexity of medical and surgical interventions and increases the chances of poor outcomes such as morbidity and mortality. 7. HOSTLER HELPER Shunt, active. - stable, did evaluate with CT head today and shunt series which were unremarkable. 8. DM2, stable. 9. VANESA on CKD, Improved. - give fluid back today and follow Cr. 10. Hyperkalemia, new and resolved. 11. Acute on chronic anemia, improved. - dipped to Hg of 6.8 this AM, outpatient values around 7-9. Transfused 1U PRBC with improvement to 8.4 this afternoon on transfer to ICU labs. 12. Demand ischemia, active. - troponin uptrending to 0.085 after run of SVT overnight, discussed with cardiology, aggressive beta barrie as above and troponins downtrended. 13. Supra-ventricular tachycardia, resolved. - unclear if afib due to rate, occurrred overnight, could not capture on EKG. improved with beta barrie with no events today. Hospital Course: She initially presented with dyspnea and chest pain. She had mildly elevated troponins and was discussed with Cardiology. A 2 day stress test was initiated and an echo revealed LVOT with a hyperdynamic pump. Cardiology recommended beta blockade and she was titrated up to metoprolol 100 mg p.o. b.i.d. a generally improved. She also was diuresed for possible acute volume overload secondary to diastolic dysfunction and then bumped her creatinine and became hyperkalemic. She was comfortable on room air and was given IV fluid back with improvement of her creatinine and also given 1 dose of Lokelma. Her potassium normalized. Over the 3rd, 4th, and 5th hospital day as these issues were being addressed she developed more apparent, and insidious altered mental status. She was not delirious but had behaviors and was not able to answer specific questions with her family. This became quite alarming to the family and was very reminiscent of her history of HOSTLER HELPER shunt dysfunction 1 time in the past. She had a HOSTLER HELPER shunt placed in 2012 at [facility] for normal pressure hydrocephalus. She was evaluated with a CT scan and plain films of the skull chest and abdomen which revealed normal ventricles, and an intact drain line. Ultimately it was felt that she would benefit from transfer to a medical center with for neurosurgical evaluation of her shunt function as well as Cardiology support if needed. Early in her encounter she would 1 episode of PSVT as well. She does have chronic diagnoses of diabetes, chronic kidney disease stage 3, solitary kidney, and obesity class 2 with a BMI of 36. She also did develop an acute anemia of unclear cause and was given 1 unit of blood earlier encounter. She had no clinical evidence of GI bleeding in the hospital. She denies any history of bleeding. She moved [place] from the [facility] approximately 8 months ago. Status at Discharge Cognitive/behavioral status at discharge: confused Functional status at discharge: uses cane/walker Overall status at discharge: patient is not back to baseline Time Spent with Patient Time spent: Greater than 30 minutes Exam Vital Signs (past 8 hours): - 10/10/24 06:00 10/10/24 07:00 10/10/24 07:00 Temperature Pulse Rate 77 80 Respiratory Rate 21 22 Blood Pressure Pulse Oximetry 98 Oxygen Delivery Method Nasal Cannula Oxygen Flow Rate Fraction of Inspired Oxygen 10/10/24 08:00 10/10/24 08:00 10/10/24 08:48 Temperature 97.8 F Pulse Rate 74 81 Respiratory Rate 19 Blood Pressure 138/90 148/65 H Pulse Oximetry Oxygen Delivery Method Oxygen Flow Rate Fraction of Inspired Oxygen 10/10/24 08:58 10/10/24 09:00 10/10/24 09:18 Temperature Pulse Rate 81 67 88 Respiratory Rate 20 Blood Pressure 148/65 H Pulse Oximetry 99 Oxygen Delivery Method Oxygen Flow Rate Fraction of Inspired Oxygen 10/10/24 10:26 Temperature Pulse Rate Respiratory Rate Blood Pressure Pulse Oximetry 100 Oxygen Delivery Method Nasal Cannula Oxygen Flow Rate 2 Fraction of Inspired Oxygen 28 Fraction of Inspired Oxygen 28 SaO2/FiO2 Ratio 357 Oxygen Delivery Method Nasal Cannula Oxygen Flow Rate 2 Narrative Exam Narrative: NAD, she was not oriented to herself or place. This appears to be worse than yesterday. Fluent speech. Lungs are clear, normal rate and effort. Heart is regular, no murmur gallop or rub. Abdomen is soft, non distended. Extremities are free of edema. She moves arms and legs normally. Cranial nerves are intact. Objective ECG Impression: Sinus tachycardia Imaging Multiple studies:: Radiologist's impression: Chest x-ray: No acute pulmonary process. Abdomen x-ray: Normal shunt position. No evidence of bowel obstruction. Skull x-ray: Intact shunt tubing. Head CT: No acute hemorrhage. No significant change in ventricular size compared to recent prior exam. Left ventricular shunt tubing remains in stable position and appears intact. Echo: 1) Mildly increased left ventricular thickness (concentric) with normal size, normal wall motion, and normal systolic function (EF 65-70%). 2) Dynamic LVOT gradient noted (peak gradient 65mmHg with valsalva). Heart rate 100-110bpm. 3) Normal right ventricular size and function. 4) No significant valvular abnormalities. 5) No prior Echo available for comparison. Chest CTA: 1. No acute pulmonary embolus. No acute abnormality is seen in the chest. 2. Moderate coronary artery calcifications. Labs 10/10/24 04:50 10/10/24 04:50 Labs: Laboratory Results - last 24 hr 10/10/24 04:50 WBC 11.7 H RBC 3.57 L Hgb 8.6 L Hct 28.6 L MCV 80.3 MCH 24.1 L MCHC 30.0 RDW 19.4 H Plt Count 269 Sodium 136 L Potassium 4.3 Chloride 99 Carbon Dioxide 33 H BUN 39 H Creatinine 1.10 H Estimated GFR 54 L BUN/Creatinine Ratio 35.5 H Glucose 154 H Calcium 9.0 PFSH Medical History Major depressive disorder, single episode, mild Macular degeneration Asthma (~2014) Headache Vertigo Hearing loss Cataracts, bilateral Colon polyps (~2017) Kidney atrophy Anemia, chronic disease 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, without long-term current use of insulin Former smoker Hyperlipidemia Unsteady gait when walking Peripheral vascular disease (~2017) Hydrocephalus Carotid artery stenosis Resistant hypertension Surgical History Anesthesia History of brain shunt (~1999) History of tubal ligation (~1979) Family History Father Cancer Hyperlipidemia Hypertension Stroke Mother History of heart disease Hyperlipidemia Hypertension Brother History of hip replacement Hyperlipidemia Brother History of heart attack Social History household members: significant other Smoking Status: Former smoker alcohol intake: current Discharge Assessment & Plan Assessment and Plan Assessment: 1. Possible acute on chronic heart failure (LVOT), with acute respiratory failure with hypoxia. Improved. 2. Acute metabolic encephalopathy (concern for possible HOSTLER HELPER shunt dysfunction), Active. 3. Chest pain, severe, improved, present on admission. Resolved. 4. HTN, present on admission and stable. 4. HLD, stable. 5. PVD, stable. 6. Obesity class 2, stable. 7. HOSTLER HELPER Shunt, active. 8. DM2, stable. 9. VANESA on CKD, Improved. 10. Hyperkalemia, new and resolved. 11. Acute on chronic anemia, improved. 12. Demand ischemia, active. 13. Supra-ventricular tachycardia, resolved. Plan of Treatment: Transfer to [facility] for further evaluation including Neurosurgery evaluation of HOSTLER HELPER shunt function. Discharge Plan Discharge Plan Patient Disposition: [facility] Other facility: [facility] Discharge Health Status Multidrug resistant organism: No MDRO Diet/Activity/Treatments Diet: Carb-consistent/Diabetic Liquid consistency: Normal/Thin Food texture: Regular Discharge Data Primary Care Provider: Yein Casper VTE Deep Vein Thrombosis/Pulmonary Embolism Present on Admission: No MIPS - DC The patient has a history of heart transplant or Left Ventricular Assist Device (LVAD). If yes, STOP here.: No The patient has current or prior documentation of left ventricular ejection fraction (LVEF) less than or equal to 40%, or moderate or severely depressed left ventricular systolic function.: No
--- NOTE | 2024-10-10 14:23 | CM.DPNOTE ---
DCP Cont Transfer to for further evaluation including Neurosurgery. No further needs from this CM team. MICKY
[2024-10-10] MEDS: methocarbamoL 500 MG TABLET PO (15:22)
[2024-10-10] MEDS: MELATONIN 3 MG TABLET PO (21:32)
[2024-10-10] MEDS: SENNOSIDES 8.6 MG TABLET 17.2 MG PO (21:32)
--- NOTE | 2024-10-11 00:10 | PC.NURSE ---
Report given to Tammy SERRANO at [facility]. Notified Néstor the daughter. Transfer arrived and patient left floor at 0040.
[2024-10-11 00:43] VITALS: BP 209/91
[2024-10-12 06:36] LABS: Hepatitis B Surf Ab Qualitativ Non Reactive (.)
== END 2024-10-11 00:40 | disposition short-term general hospital (02) | DRG 291 ==
LOC: ED 10:31 → AC 10:53 → ICU 10-07 15:05
PROVIDERS: Hospitalist; Internal Medicine; Admitting Provider Internal Medicine; Emergency Provider Emergency Medicine; PCP Family Medicine; Visit Provider Internal Medicine
DX: I13.0 Hypertensive heart and chronic kidney disease with heart failure and stage 1 through stage 4 chronic kidney disease, or unspecified chronic kidney disease (principal); G93.41 Metabolic encephalopathy; I50.33 Acute on chronic diastolic (congestive) heart failure; J96.01 Acute respiratory failure with hypoxia; I47.10 Supraventricular tachycardia, unspecified; N17.9 Acute kidney failure, unspecified; I24.89 Other forms of acute ischemic heart disease; T85.890A Other specified complication of nervous system prosthetic devices, implants and grafts, initial encounter; R07.9 Chest pain, unspecified; E78.5 Hyperlipidemia, unspecified; I73.9 Peripheral vascular disease, unspecified; E11.22 Type 2 diabetes mellitus with diabetic chronic kidney disease; D63.1 Anemia in chronic kidney disease; E87.5 Hyperkalemia; N18.30 Chronic kidney disease, stage 3 unspecified; E66.812 Obesity, class 2; Y75.1 Therapeutic (nonsurgical) and rehabilitative neurological devices associated with adverse incidents; Z79.85 Long-term (current) use of injectable non-insulin antidiabetic drugs; Z90.5 Acquired absence of kidney; Z98.2 Presence of cerebrospinal fluid drainage device; Z68.36 Body mass index [BMI] 36.0-36.9, adult; Z87.891 Personal history of nicotine dependence
CPT/HCPCS: 36415; 36430; 36600; 70250; 70450; 71045; 71275; 74018; 78451; 80048; 80053; 80061; 81003; 81015; 82550; 82805; 82962; 83036; 83605; 83690; 83735; 83880; 84145; 84443; 84484; 85014; 85018; 85025; 85027; 85379; 85610; 85730; 86850; 86900; 86901; 87040; 87086; 87633; 93005; 93010; 93306; 94640; 94762; 96365; 96375; 97162; 97530; 99285; P9016; A9502; J0360; J0696; J1171; J1650; J1815; J1940; J2060; J2310; J2405; J2470; J2919; J7613; Q9967